=== PATIENT | male | born 1940 | race Caucasian/White ===

== ENCOUNTER 2017-08-04 16:06 | Inpatient (IN) | payer MEDICARE, OTHER ==
[~2017-08-04] VITALS: Ht 175.3 cm; Wt 121.6 kg
[2017-08-04] MEDS ORDERED: HEPARIN SO5000 UNIT2 SUBQ (16:23)
[2017-08-04] MEDS ORDERED: ACARBOSE50 MG ORAL (16:23)
[2017-08-04] MEDS ORDERED: ATORVASTATIN CA40 MG ORAL (16:23)
[2017-08-04] MEDS ORDERED: ASPIR 8181 MG ORAL (16:23)
[2017-08-04] MEDS ORDERED: LANTUS5 UNITS SUBQ (16:23)
[2017-08-04] MEDS ORDERED: MILK OF MA400 MG/51 ORAL (16:23)
[2017-08-04] MEDS ORDERED: ATENOLOL50 MG ORAL (16:23)
[2017-08-04] MEDS ORDERED: CYCLOBENZAPRINE10 MG ORAL (16:23)
[2017-08-04] MEDS ORDERED: SENOKOT8.6 MG PO (16:23)
[2017-08-04] MEDS ORDERED: GABAPENTIN400 MG ORAL (16:23)
[2017-08-04] MEDS ORDERED: JANUVIA25 MG ORAL (16:23)
[2017-08-04] MEDS ORDERED: MULTIVITAMINS1 EAC8 ORAL (16:23)
[2017-08-04] MEDS ORDERED: TAMSULOSIN HCL0.4 MG ORAL (16:23)
[2017-08-04] MEDS ORDERED: GLIMEPIRIDE4 MG ORAL (16:23)
[2017-08-04] MEDS ORDERED: TYLENOL650 MG/20. ORAL (16:23)
[2017-08-04] MEDS ORDERED: COLACE100 MG ORAL (16:23)
[2017-08-04] MEDS ORDERED: HUMALOG100 UNIT/4 SUBQ (16:23)
[2017-08-04] MEDS ORDERED: OXYCODONE-ACET1 EAC3 ORAL (16:23)
[2017-08-04] MEDS ORDERED: PROSCAR5 MG ORAL (16:23)
[2017-08-04] MEDS ORDERED: ZOFRAN4 M3 ORAL (16:23)
[2017-08-04] MEDS ORDERED: Cefepime HCl 1 GM in NS 55 ML IV SCH (16:45)
[2017-08-04 17:37] LABS: ANION GAP 12 mmol/L (5-15); BLOOD UREA NITROGEN 29 mg/dL (7-18); CALCIUM 9.6 MG/DL (8.5-10.1); CARBON DIOXIDE 28 MMOL/L (21-32); CHLORIDE 96 MMOL/L (98-107); CREATININE 1.4 MG/DL (0.55-1.30); SODIUM 136 MMOL/L (136-145)
[2017-08-04 17:42] LABS: BASOPHILS % (AUTO) 0.6 % (0.0-2.0); EOSINOPHILS % (AUTO) 0.7 % (0.0-3.0); HEMATOCRIT 43.1 % (42.0-52.0); HEMOGLOBIN 14.5 G/DL (14.2-18.0); LYMPHOCYTES % (AUTO) 11.5 % (20.0-45.0); MEAN CORPUSCULAR VOLUME 86 FL (80-99); MONOCYTES % (AUTO) 10.9 % (1.0-10.0); NEUTROPHILS % (AUTO) 76.4 % (45.0-75.0); PLATELET COUNT 221 K/UL (150-450); RED BLOOD COUNT 5.01 M/UL (4.70-6.10); RED CELL DISTRIBUTION WIDTH 14.3 % (11.6-14.8); WHITE BLOOD COUNT 8.1 K/UL (4.8-10.8)
[2017-08-04 17:42] LABS: APPEARANCE,URINE SLIGHTLY CLOUDY; BILIRUBIN, URINE 1+ (NEGATIVE); COLOR,URINE BROWN; GLUCOSE, URINE (UA) NEGATIVE (NEGATIVE); KETONES,URINE 2+ (NEGATIVE); LEUKOCYTE ESTERASE ,URINE 3+ (NEGATIVE); NITRITE,URINE NEGATIVE (NEGATIVE); PH,URINE 5 (4.5-8.0); PROTEIN,URINE 2+ (NEGATIVE); UROBILINOGEN,URINE 8 MG/DL (0.0-1.0)
[2017-08-04 17:52] LABS: ALANINE AMINOTRANSFERASE 50 U/L (12-78); ALBUMIN 3.5 G/DL (3.4-5.0); ALBUMIN/GLOBULIN RATIO 0.7 (1.0-2.7); ALKALINE PHOSPHATASE 107 U/L (46-116); ASPARTATE AMINO TRANSFERASE 35 U/L (15-37); BILIRUBIN,TOTAL 1.5 MG/DL (0.2-1.0); CKMB 1.5 NG/ML (0.0-3.6); CREATINE KINASE 35 U/L (26-308)
[2017-08-04 18:03] LABS: BILIRUBIN,DIRECT 0.7 MG/DL (0.0-0.3)
[2017-08-04 18:06] VITALS: BP 133/58
[2017-08-04] MEDS ORDERED: oxyCODONE HCL/Acetaminophen 5/325mg ORAL PRN (18:15)
[2017-08-04] MEDS ORDERED: Miralax 17gm pkt ORAL PRN (18:15)
[2017-08-04] MEDS ORDERED: Albuterol/Ipratropium 3ml neb HHN PRN (18:15)
[2017-08-04] MEDS ORDERED: Nitroglycerin Subl 0.4mg tab SL PRN (18:30)
[2017-08-04] MEDS: Tamsulosin 0.4mg cap ORAL SCH ×2 (21:00→23:20)
[2017-08-04] MEDS: Atorvastatin 80mg tab ORAL SCH ×2 (21:00→23:20)
--- NOTE | 2017-08-04 21:16 | History and Physical ---
History of Present Illness General Date patient seen: Aug 04, 2017 Time patient seen: 18:52 Reason for Hospitalization: persistent cough, nausea, poor appetite Present Illness HPI 77y/o male with pmh of HTN, CKD stage 3, DM2 (A1C 7.2) c/b neuropathy, GERD, L4- 5 spinal stenosis, BPH, osteoarthritis, depressionwho presents with persistent cough, nausea and poor PO intake. Pt states he has had poor PO intake for abt 2 months. States lately has not taken in much PO at all 2/2 nausea. Denies recent emesis. C/o persistent cough w/ minimal sputum for the past few weeks. Occ mild abd discomfort, but not currently. Denies f/c, d/c, chest pain, SOB, dysuria. Has chronic lower back pain which is stable. Has not been ambulating much at SNF. Notes ~30lb weight loss. In ED, pt had CT chest/abd/pelvis which showed distended gallbladder likely 2/2 cholelithiasis, small to moderate PE. Surgery consulted. Allergies: Coded Allergies: No Known Allergies (Unverified , 08/04/17) Medication History Scheduled Acarbose* (Precose*), 100 MG ORAL THREE TIMES A DAY, (Reported) Aspirin* (Aspir 81*), 81 MG ORAL DAILY, (Reported) Atenolol* (Tenormin*), 50 MG ORAL DAILY, (Reported) Atorvastatin Calcium* (Atorvastatin Calcium*), 80 MG ORAL BEDTIME, (Reported) Cyclobenzaprine Hcl* (Flexeril*), 10 MG ORAL THREE TIMES A DAY, (Reported) Docusate Sodium* (Colace*), 100 MG ORAL DAILY, (Reported) Finasteride* (Proscar*), 5 MG ORAL DAILY, (Reported) Gabapentin* (Gabapentin*), 400 MG ORAL THREE TIMES A DAY, (Reported) Glimepiride* (Glimepiride*), 4 MG ORAL BEFORE BREAKFAST, (Reported) Heparin Sod (Porcine) (Heparin Sodium*), 5,000 UNITS SUBQ EVERY 12 HOURS, ( Reported) Insulin Glargine (Lantus), 0 SUBQ BEDTIME, (Reported) Magnesium Hydroxide* (Milk Of Magnesia*), 30 ML ORAL DAILY, (Reported) Multivitamin With Minerals (Multivitamins With Minerals*), 1 TAB ORAL DAILY, ( Reported) Sitagliptin* (Januvia*), 100 MG ORAL DAILY, (Reported) Tamsulosin Hcl (Tamsulosin Hcl*), 0.4 MG ORAL BEDTIME, (Reported) Scheduled PRN Acetaminophen (Acetaminophen), 650 MG ORAL Q6H PRN for Prn Headache/Temp > 101, (Reported) Ondansetron* (Zofran*), 4 MG ORAL Q6H PRN for Nausea & Vomiting, (Reported) Oxycodone Hcl/Acetaminophen 5-325* (Oxycodone-Acetaminophen 5-325*), 1 TAB ORAL Q4H PRN for For Pain, (Reported) Miscellaneous Medications Insulin Lispro (Humalog), 0 SUBQ, (Reported) Sennosides (Senokot), 8.6 MG PO, (Reported) Patient History History Provided By: Patient, Medical Record, PMD Healthcare decision maker Resuscitation status Advanced Directive on File Past Medical/Surgical History Past Medical/Surgical History: (1) HTN (hypertension) (2) CKD (chronic kidney disease), stage III (3) BPH (benign prostatic hyperplasia) (4) Osteoarthritis (5) Depression (6) Lumbar spinal stenosis (7) GERD (gastroesophageal reflux disease) (8) Morbid obesity Social History Social History: (1) lives in [facility] Review of Systems Constitutional: Reports: malaise, weakness Eye: Reports: no symptoms ENT: Reports: no symptoms Respiratory: Reports: cough Cardiovascular: Reports: no symptoms Gastrointestinal: Reports: abdominal pain, nausea, vomiting Genitourinary: Reports: no symptoms Musculoskeletal: Reports: back pain Skin: Reports: no symptoms Psychiatric: Reports: no symptoms Neurological: Reports: no symptoms Endocrine: Reports: no symptoms Hematologic/Lymphatic: Reports: no symptoms Physical Exam Physical Exam Narrative General: alert, cooperative, no distress, appears stated age Head: normocephalic, without obvious abnormality, atraumatic Eyes: conjunctivae/corneas clear. PERRL, EOM's intact Throat: lips, mucosa, and tongue normal. MMM Neck: supple, symmetrical, trachea midline, and no JVD Lungs: clear to auscultation bilaterally Heart: regular rate and rhythm, S1, S2 normal, no murmur, click, rub or gallop Abdomen: soft, non-tender, non-distended, bowel sounds normal; Extremities: extremities normal, atraumatic, no cyanosis, +BLE edema Pulses: 2+ and symmetric Skin: skin color, texture, turgor normal; no rashes or lesions Neurologic: grossly normal, no focal deficits Last 24 Hour Vital Signs Date Time Temp Pulse Resp B/P (MAP) Pulse Ox O2 Delivery O2 Flow Rate FiO2 08/04/17 19:28 115/68 08/04/17 18:06 98.5 78 18 133/58 99 Room Air 98.5 08/04/17 15:59 98.0 78 20 144/67 94 Room Air 98.1 Laboratory Tests Test 08/04/17 17:10 08/04/17 17:25 White Blood Count 8.1 K/UL (4.8-10.8) Red Blood Count 5.01 M/UL (4.70-6.10) Hemoglobin 14.5 G/DL (14.2-18.0) Hematocrit 43.1 % (42.0-52.0) Mean Corpuscular Volume 86 FL (80-99) Mean Corpuscular Hemoglobin 29.0 PG (27.0-31.0) Mean Corpuscular Hemoglobin Concent 33.7 G/DL (32.0-36.0) Red Cell Distribution Width 14.3 % (11.6-14.8) Platelet Count 221 K/UL (150-450) Mean Platelet Volume 7.0 FL (6.5-10.1) Neutrophils (%) (Auto) 76.4 % (45.0-75.0) H Lymphocytes (%) (Auto) 11.5 % (20.0-45.0) L Monocytes (%) (Auto) 10.9 % (1.0-10.0) H Eosinophils (%) (Auto) 0.7 % (0.0-3.0) Basophils (%) (Auto) 0.6 % (0.0-2.0) Sodium Level 136 MMOL/L (136-145) Potassium Level 4.0 MMOL/L (3.5-5.1) Chloride Level 96 MMOL/L (98-107) L Carbon Dioxide Level 28 MMOL/L (21-32) Anion Gap 12 mmol/L (5-15) Blood Urea Nitrogen 29 mg/dL (7-18) H Creatinine 1.4 MG/DL (0.55-1.30) H Estimat Glomerular Filtration Rate mL/min (>60) Glucose Level 169 MG/DL (74-106) H Lactic Acid Level 1.40 mmol/L (0.66-2.22) Calcium Level 9.6 MG/DL (8.5-10.1) Total Bilirubin 1.5 MG/DL (0.2-1.0) H Direct Bilirubin 0.7 MG/DL (0.0-0.3) H Aspartate Amino Transf (AST/SGOT) 35 U/L (15-37) Alanine Aminotransferase (ALT/SGPT) 50 U/L (12-78) Alkaline Phosphatase 107 U/L (46-116) Total Creatine Kinase 35 U/L (26-308) Creatine Kinase MB 1.5 NG/ML (0.0-3.6) Creatine Kinase MB Relative Index 4.2 Troponin I 0.005 ng/mL (0.000-0.056) Total Protein 8.2 G/DL (6.4-8.2) Albumin 3.5 G/DL (3.4-5.0) Globulin 4.7 g/dL Albumin/Globulin Ratio 0.7 (1.0-2.7) L Urine Color Brown Urine Appearance Slightly cloudy Urine pH 5 (4.5-8.0) Urine Specific [place] 1.020 (1.005-1.035) Urine Protein 2+ (NEGATIVE) H Urine Glucose (UA) Negative (NEGATIVE) Urine Ketones 2+ (NEGATIVE) H Urine Occult Blood 4+ (NEGATIVE) H Urine Nitrite Negative (NEGATIVE) Urine Bilirubin 1+ (NEGATIVE) H Urine Ictotest Negative Urine Urobilinogen 8 MG/DL (0.0-1.0) H Urine Leukocyte Esterase 3+ (NEGATIVE) H Urine RBC 5-10 /HPF (0 - 0) H Urine WBC 10-15 /HPF (0 - 0) H Urine Squamous Epithelial Cells None /LPF (NONE/OCC) Urine Amorphous Sediment Few /LPF (NONE) H Urine Bacteria Many /HPF (NONE) H Microbiology Date/Time Source Procedure Growth Status 08/04/17 20:00 Nasal Nares Influenza Types A,B Antigen (ANN) - Final Complete Height (Feet): 5 Height (Inches): 9.00 Weight (Pounds): 160 Medications Current Medications Medications (Trade) Dose Ordered Sig/Faizan Route PRN Reason Start Time Stop Time Status Last Admin Dose Admin Acetaminophen (Tylenol) 650 mg Q4H PRN ORAL T>100.5 08/04/17 18:15 09/03/17 18:14 Albuterol/ Ipratropium (Albuterol/ Ipratropium) 3 ml Q4H PRN HHN Shortness of Breath 08/04/17 18:15 08/09/17 18:14 Aspirin (Ecotrin) 81 mg DAILY ORAL 08/05/17 09:00 09/04/17 08:59 Atenolol (Tenormin) 50 mg DAILY ORAL 08/05/17 09:00 09/04/17 08:59 Atorvastatin Calcium (Lipitor) 80 mg BEDTIME ORAL 08/04/17 21:00 09/03/17 20:59 Cefepime HCl 2 gm/ Sodium Chloride 110 ml @ 220 mls/hr Q24H IV 08/04/17 22:30 08/11/17 22:29 Dextrose (Dextrose 50%) STAT PRN IV Hypoglycemia 08/04/17 18:15 09/03/17 18:14 Gabapentin (Neurontin) 400 mg THREE TIMES A DAY ORAL 08/05/17 09:00 09/04/17 08:59 Heparin Sodium (Porcine) (Heparin 5000 units/ml) 5,000 units EVERY 12 HOURS SUBQ 08/04/17 21:00 09/03/17 20:59 Insulin Aspart (NovoLOG) BEFORE MEALS AND HS SUBQ 08/04/17 21:00 09/03/17 20:59 Metronidazole 100 ml @ 100 mls/hr Q6H IV 08/04/17 16:45 08/05/17 16:44 08/04/17 16:45 Morphine Sulfate (Morphine Sulfate) 2 mg Q4H PRN IVP Severe Pain (Pain Scale 7-10) 08/04/17 18:15 08/11/17 18:14 Nitroglycerin (Ntg) 0.4 mg Q5MIN X 3 DOSES PRN SL Prn Chest Pain 08/04/17 18:30 09/03/17 18:29 Ondansetron HCl (Zofran) 4 mg Q6H PRN IVP Nausea & Vomiting 08/04/17 18:15 09/03/17 18:14 Oxycodone/ Acetaminophen (Percocet 5-325) 1 tab Q4H PRN ORAL Moderate Pain (Pain Scale 4-6) 08/04/17 18:15 08/11/17 18:14 Polyethylene Glycol (Miralax) 17 gm DAILYPRN PRN ORAL Constipation 08/04/17 18:15 09/03/17 18:14 Tamsulosin HCl (Flomax) 0.4 mg BEDTIME ORAL 08/04/17 21:00 09/03/17 20:59 Temazepam (Restoril) 15 mg HSPRN PRN ORAL Insomnia 08/04/17 21:00 08/11/17 20:59 Vancomycin HCl 1 gm/Dextrose 275 ml @ 183.3 mls/ hr Q24H IV 08/05/17 00:30 08/10/17 00:29 UNV Assessment/Plan Problem List: (1) Acute deep vein thrombosis (DVT) of both lower extremities ICD Codes: I82.403 - Acute embolism and thrombosis of unspecified deep veins of lower extremity, bilateral SNOMED: 617422183428 (2) Pulmonary embolism ICD Codes: I26.99 - Other pulmonary embolism without acute cor pulmonale SNOMED: 75966009 (3) Cholelithiasis ICD Codes: K80.20 - Calculus of gallbladder without cholecystitis without obstruction SNOMED: 844573049 Qualifiers: (4) CKD (chronic kidney disease), stage III ICD Codes: N18.3 - Chronic kidney disease, stage 3 (moderate) SNOMED: 745559614 (5) Morbid obesity ICD Codes: E66.01 - Morbid (severe) obesity due to excess calories SNOMED: 641259023, 96907897864002 (6) HTN (hypertension) ICD Codes: I10 - Essential (primary) hypertension SNOMED: 60828266 (7) Lumbar spinal stenosis ICD Codes: M48.061 - Spinal stenosis, lumbar region without neurogenic claudication SNOMED: 12118625 (8) Osteoarthritis ICD Codes: M19.90 - Unspecified osteoarthritis, unspecified site SNOMED: 176128541 (9) GERD (gastroesophageal reflux disease) ICD Codes: K21.9 - Gastro-esophageal reflux disease without esophagitis SNOMED: 424256121 (10) BPH (benign prostatic hyperplasia) ICD Codes: N40.0 - Benign prostatic hyperplasia without lower urinary tract symptoms SNOMED: 775629966 (11) UTI (urinary tract infection) ICD Codes: N39.0 - Urinary tract infection, site not specified SNOMED: 09417207 (12) Failure to thrive SNOMED: 83945284 (13) Weight loss ICD Codes: R63.4 - Abnormal weight loss SNOMED: 83338536, 855776726 Status: stable Assessment/Plan Admit inpt Surgery consulted given CT a/p findings of distended gallbladder Pulm consulted Will d/w surgery and start heparin gtt Empiric abx: vanco, cefepime F/u cultures Trend CBC Trend BMP IVFs Nutrional eval Zofran PRN Pain control, bowel regimen Supportive care Cont SNF meds: ASA, atenolol, statin, flomax, finasteride BASSAM DVT Prophylaxis: HSQ Code Status: Full Hospital Classification Declaration: Based on this initial evaluation, and depending on the patient's clinical course, I anticipate that this patient will require hospitalization for 2-3 days for failure to thrive, cholelithiasis, acute DVT and PE, and close respiratory/hemodynamic monitoring. Disposition: Once the patient is stable to leave the hospital, I anticipate the patient will likely be discharged to the following environment: back to SNF I spent 71 minutes on this patient's case, and >50% was dedicated to counseling and/or care coordination. Discussed with patient/family, nursing staff, SW/CM, pulm, surgery regarding clinical status, treatment course, and disposition planning. Time of note may not reflect time of encounter. Darshana Bonilla M.D. Aug 04, 2017 21:16
[2017-08-04] MEDS ORDERED: Vancomycin 1.5 GM/D5W 250ML IVPB ONE (23:00)
[2017-08-04] MEDS: Cefepime HCl 2 GM in NS 110 ML IV SCH (23:21)
[2017-08-04] MEDS: Heparin 5000 units/ml inj SUBQ SCH (23:23)
[2017-08-04] MEDS: NovoLOG Insulin Flexpen SUBQ SCH (23:29)
[2017-08-05] MEDS ORDERED: Vancomycin 1 GM in D5W 275 ML IV SCH (00:30)
[2017-08-05] MEDS: Morphine Sulfate 2mg/ml Inj IVP PRN (01:48)
[2017-08-05 04:00] VITALS: BP 122/68
[2017-08-05] MEDS: NovoLOG Insulin Flexpen SUBQ SCH ×4 (05:51→20:34)
[2017-08-05 07:13] LABS: BASOPHILS % (AUTO) 0.8 % (0.0-2.0); EOSINOPHILS % (AUTO) 1.7 % (0.0-3.0); HEMATOCRIT 39.3 % (42.0-52.0); HEMOGLOBIN 13.2 G/DL (14.2-18.0); LYMPHOCYTES % (AUTO) 17.6 % (20.0-45.0); MEAN CORPUSCULAR VOLUME 86 FL (80-99); MONOCYTES % (AUTO) 11.9 % (1.0-10.0); PLATELET COUNT 203 K/UL (150-450); RED BLOOD COUNT 4.59 M/UL (4.70-6.10); RED CELL DISTRIBUTION WIDTH 14.1 % (11.6-14.8); WHITE BLOOD COUNT 7.2 K/UL (4.8-10.8)
[2017-08-05 07:48] LABS: PHOSPHORUS 3.3 MG/DL (2.5-4.9)
[2017-08-05 07:53] LABS: ALANINE AMINOTRANSFERASE 42 U/L (12-78); ALBUMIN/GLOBULIN RATIO 0.7 (1.0-2.7); ALKALINE PHOSPHATASE 90 U/L (46-116); ANION GAP 13 mmol/L (5-15); ASPARTATE AMINO TRANSFERASE 30 U/L (15-37); BILIRUBIN,TOTAL 1.1 MG/DL (0.2-1.0); BLOOD UREA NITROGEN 24 mg/dL (7-18); CALCIUM 9.3 MG/DL (8.5-10.1); CARBON DIOXIDE 24 MMOL/L (21-32); CHLORIDE 97 MMOL/L (98-107); CREATININE 1.3 MG/DL (0.55-1.30); POTASSIUM 3.3 MMOL/L (3.5-5.1); SODIUM 134 MMOL/L (136-145)
[2017-08-05 07:58] LABS: BILIRUBIN,DIRECT 0.4 MG/DL (0.0-0.3)
[2017-08-05 08:00] VITALS: BP 116/67
[2017-08-05] MEDS ORDERED: Aspirin EC 81mg tab ORAL SCH (09:00)
--- NOTE | 2017-08-05 09:11 | Diagnostic Imaging Report ---
Indication: Abdominal pain Technique: Continuous helical transaxial imaging of the chest, abdomen and pelvis was obtained from the lung bases to the pubic symphysis during intravenous contrast administration. Coronal 2-D reformats were also obtained. Study obtained in a Siemens sensation [address] Automatic Exposure Control was utilized. Total Dose length Product (DLP): [address] Dose Index Volume (CTDIvol): 0.15, 8.11, 48.67, 23.8, 26.79 mGy Comparison: None Findings: There is a filling defect in the left pulmonary artery extending into the left lower lobe branch and segmental branches most likely. Findings consistent with pulmonary embolus. Bovine arch noted. There is a small nodule at the right lung base measuring about 1 cm. The nodule is noncalcified and requires further evaluation. There is mild posterior basilar atelectasis. A hiatal hernia is present. There are innumerable stones within the gallbladder. Please correlate clinically for cholecystitis. The kidneys are atrophic. There are multiple hypodensities some too small to characterize adequately on this examination within the kidneys. There is a 4 cm cyst in the right kidney. Tiny left adrenal nodule demonstrated. The spleen and liver appear unremarkable. The pancreas is unremarkable. Aorta is moderately calcified. Normal appendix noted. No free air or free fluid identified. Urinary bladder is grossly unremarkable. Moderate degenerative changes of the lumbar spine demonstrated with hypertrophied facets, vertebral endplates and narrowed discs. IMPRESSION: Pulmonary embolus. Cholelithiasis. Please correlate clinically for cholecystitis. 1 cm right lung base nodule. Recommend [address] follow-up per Fleischner Society criteria. Small left adrenal nodule. Further evaluation with MR recommended. Right renal cyst Multiple hypodensities in both kidneys too small to characterize adequately. Normal appendix. Hiatal hernia Degenerative changes of the spine [facility] has communicated the preliminary results to the Emergency Department. Their findings are largely concordant with this report. Critical value communication. Findings were discussed via telephone with Dr. Don Kaye 08/04/17, 19:[address] scanner at [facility] is accredited by the [employer] and the scans are performed using dose optimization techniques as appropriate to a performed exam including Automatic Exposure control.
[2017-08-05] MEDS: Docusate 100mg cap ORAL SCH ×2 (09:35→16:49)
[2017-08-05] MEDS: Multivitamin w/Minerals tab ORAL SCH (09:35)
[2017-08-05] MEDS: Heparin 5000 units/ml inj SUBQ SCH (09:38)
--- NOTE | 2017-08-05 10:45 | Consultation ---
History of Present Illness General Date patient seen: Aug 04, 2017 Chief Complaint: General Complaint Referring physician: Dr. harrison Reason for Consultation: PE Present Illness HPI 77 year old male with hx of DM, chronic renal insufficiency, [facility] resident, SERJIO with CC of abdominal pain, nausea, dyspnea. He had a CT chest in ER showing Pulmonary embolism. P t looks chronically ill and c/o increasing weakness. Allergies: Coded Allergies: No Known Allergies (Unverified , 08/04/17) Medication History Scheduled Acarbose* (Precose*), 100 MG ORAL THREE TIMES A DAY, (Reported) Aspirin* (Aspir 81*), 81 MG ORAL DAILY, (Reported) Atenolol* (Tenormin*), 50 MG ORAL DAILY, (Reported) Atorvastatin Calcium* (Atorvastatin Calcium*), 80 MG ORAL BEDTIME, (Reported) Cyclobenzaprine Hcl* (Flexeril*), 10 MG ORAL THREE TIMES A DAY, (Reported) Docusate Sodium* (Colace*), 100 MG ORAL DAILY, (Reported) Finasteride* (Proscar*), 5 MG ORAL DAILY, (Reported) Gabapentin* (Gabapentin*), 400 MG ORAL THREE TIMES A DAY, (Reported) Glimepiride* (Glimepiride*), 4 MG ORAL BEFORE BREAKFAST, (Reported) Heparin Sod (Porcine) (Heparin Sodium*), 5,000 UNITS SUBQ EVERY 12 HOURS, ( Reported) Insulin Glargine (Lantus), 0 SUBQ BEDTIME, (Reported) Magnesium Hydroxide* (Milk Of Magnesia*), 30 ML ORAL DAILY, (Reported) Multivitamin With Minerals (Multivitamins With Minerals*), 1 TAB ORAL DAILY, ( Reported) Sitagliptin* (Januvia*), 100 MG ORAL DAILY, (Reported) Tamsulosin Hcl (Tamsulosin Hcl*), 0.4 MG ORAL BEDTIME, (Reported) Scheduled PRN Acetaminophen (Acetaminophen), 650 MG ORAL Q6H PRN for Prn Headache/Temp > 101, (Reported) Ondansetron* (Zofran*), 4 MG ORAL Q6H PRN for Nausea & Vomiting, (Reported) Oxycodone Hcl/Acetaminophen 5-325* (Oxycodone-Acetaminophen 5-325*), 1 TAB ORAL Q4H PRN for For Pain, (Reported) Miscellaneous Medications Insulin Lispro (Humalog), 0 SUBQ, (Reported) Sennosides (Senokot), 8.6 MG PO, (Reported) Patient History Healthcare decision maker Resuscitation status Full Code Advanced Directive on File Past Medical/Surgical History Past Medical/Surgical History: (1) Chronic renal insufficiency (2) Morbid obesity Review of Systems All Other Systems: negative except mentioned in HPI Physical Exam General Appearance: WD/WN Lines, tubes and drains: peripheral HEENT: normocephalic, atraumatic Neck: non-tender, normal alignment Respiratory/Chest: chest wall non-tender, normal breath sounds Breasts: no masses Cardiovascular/Chest: normal rate Abdomen: normal bowel sounds, hyperactive bowel sounds Extremities: normal range of motion Neurologic: green marketer II-XII grossly normal Last 24 Hour Vital Signs Date Time Temp Pulse Resp B/P (MAP) Pulse Ox O2 Delivery O2 Flow Rate FiO2 08/05/17 09:37 99 116/67 08/05/17 08:00 98 08/05/17 08:00 97.7 99 20 116/67 96 Room Air 08/05/17 04:00 100 08/05/17 04:00 96.6 98 20 122/68 98 08/05/17 00:00 104 08/04/17 19:28 115/68 08/04/17 18:06 98.5 78 18 133/58 99 Room Air 98.5 08/04/17 15:59 98.0 78 20 144/67 94 Room Air 98.1 Intake and Output 08/04/17 08/05/17 19:00 07:00 Intake Total 265 ml Output Total 660 ml Balance -395 ml Intake Oral 40 ml IV Total 225 ml Output Urine Total 660 ml Laboratory Tests Test 08/04/17 17:10 08/04/17 17:25 08/05/17 06:20 White Blood Count 8.1 K/UL (4.8-10.8) 7.2 K/UL (4.8-10.8) Red Blood Count 5.01 M/UL (4.70-6.10) 4.59 M/UL (4.70-6.10) L Hemoglobin 14.5 G/DL (14.2-18.0) 13.2 G/DL (14.2-18.0) L Hematocrit 43.1 % (42.0-52.0) 39.3 % (42.0-52.0) L Mean Corpuscular Volume 86 FL (80-99) 86 FL (80-99) Mean Corpuscular Hemoglobin 29.0 PG (27.0-31.0) 28.7 PG (27.0-31.0) Mean Corpuscular Hemoglobin Concent 33.7 G/DL (32.0-36.0) 33.5 G/DL (32.0-36.0) Red Cell Distribution Width 14.3 % (11.6-14.8) 14.1 % (11.6-14.8) Platelet Count 221 K/UL (150-450) 203 K/UL (150-450) Mean Platelet Volume 7.0 FL (6.5-10.1) 7.2 FL (6.5-10.1) Neutrophils (%) (Auto) 76.4 % (45.0-75.0) H 68.0 % (45.0-75.0) Lymphocytes (%) (Auto) 11.5 % (20.0-45.0) L 17.6 % (20.0-45.0) L Monocytes (%) (Auto) 10.9 % (1.0-10.0) H 11.9 % (1.0-10.0) H Eosinophils (%) (Auto) 0.7 % (0.0-3.0) 1.7 % (0.0-3.0) Basophils (%) (Auto) 0.6 % (0.0-2.0) 0.8 % (0.0-2.0) Sodium Level 136 MMOL/L (136-145) 134 MMOL/L (136-145) L Potassium Level 4.0 MMOL/L (3.5-5.1) 3.3 MMOL/L (3.5-5.1) L Chloride Level 96 MMOL/L (98-107) L 97 MMOL/L (98-107) L Carbon Dioxide Level 28 MMOL/L (21-32) 24 MMOL/L (21-32) Anion Gap 12 mmol/L (5-15) 13 mmol/L (5-15) Blood Urea Nitrogen 29 mg/dL (7-18) H 24 mg/dL (7-18) H Creatinine 1.4 MG/DL (0.55-1.30) H 1.3 MG/DL (0.55-1.30) Estimat Glomerular Filtration Rate mL/min (>60) mL/min (>60) Glucose Level 169 MG/DL (74-106) H 159 MG/DL (74-106) H Lactic Acid Level 1.40 mmol/L (0.66-2.22) Calcium Level 9.6 MG/DL (8.5-10.1) 9.3 MG/DL (8.5-10.1) Total Bilirubin 1.5 MG/DL (0.2-1.0) H 1.1 MG/DL (0.2-1.0) H Direct Bilirubin 0.7 MG/DL (0.0-0.3) H 0.4 MG/DL (0.0-0.3) H Aspartate Amino Transf (AST/SGOT) 35 U/L (15-37) 30 U/L (15-37) Alanine Aminotransferase (ALT/SGPT) 50 U/L (12-78) 42 U/L (12-78) Alkaline Phosphatase 107 U/L (46-116) 90 U/L (46-116) Total Creatine Kinase 35 U/L (26-308) Creatine Kinase MB 1.5 NG/ML (0.0-3.6) Creatine Kinase MB Relative Index 4.2 Troponin I 0.005 ng/mL (0.000-0.056) 0.033 ng/mL (0.000-0.056) Total Protein 8.2 G/DL (6.4-8.2) 7.3 G/DL (6.4-8.2) Albumin 3.5 G/DL (3.4-5.0) 3.0 G/DL (3.4-5.0) L Globulin 4.7 g/dL 4.3 g/dL Albumin/Globulin Ratio 0.7 (1.0-2.7) L 0.7 (1.0-2.7) L Urine Color Brown Urine Appearance Slightly cloudy Urine pH 5 (4.5-8.0) Urine Specific [place] 1.020 (1.005-1.035) Urine Protein 2+ (NEGATIVE) H Urine Glucose (UA) Negative (NEGATIVE) Urine Ketones 2+ (NEGATIVE) H Urine Occult Blood 4+ (NEGATIVE) H Urine Nitrite Negative (NEGATIVE) Urine Bilirubin 1+ (NEGATIVE) H Urine Ictotest Negative Urine Urobilinogen 8 MG/DL (0.0-1.0) H Urine Leukocyte Esterase 3+ (NEGATIVE) H Urine RBC 5-10 /HPF (0 - 0) H Urine WBC 10-15 /HPF (0 - 0) H Urine Squamous Epithelial Cells None /LPF (NONE/OCC) Urine Amorphous Sediment Few /LPF (NONE) H Urine Bacteria Many /HPF (NONE) H Erythrocyte Sedimentation Rate 28 MM/HR (0-20) H Hemoglobin A1c 7.2 % (4.3-6.0) H Phosphorus Level 3.3 MG/DL (2.5-4.9) Magnesium Level 1.4 MG/DL (1.8-2.4) L C-Reactive Protein, Quantitative 2.6 mg/dL (0.00-0.90) H Pro-B-Type Natriuretic Peptide 389 pg/mL (0-125) H Vitamin B12 Level 832 PG/ML (193-986) Vitamin D 25-Hydroxy Pending 25-Hydroxy Vitamin D2 Pending 25-Hydroxy Vitamin D3 Pending Folate 7.4 NG/ML (8.6-58.9) L Thyroid Stimulating Hormone (TSH) 1.350 uiU/mL (0.358-3.740) Microbiology Date/Time Source Procedure Growth Status 08/04/17 20:00 Nasal Nares Influenza Types A,B Antigen (ANN) - Final Complete 08/04/17 17:25 Urine,Clean Catch Urine Culture - Preliminary Gram Negative Bacillus 1 Resulted Height (Feet): 5 Height (Inches): 9.00 Weight (Pounds): 258 Medications Current Medications Medications (Trade) Dose Ordered Sig/Faizan Route PRN Reason Start Time Stop Time Status Last Admin Dose Admin Acetaminophen (Tylenol) 650 mg Q4H PRN ORAL T>100.5 08/04/17 18:15 09/03/17 18:14 Albuterol/ Ipratropium (Albuterol/ Ipratropium) 3 ml Q4H PRN HHN Shortness of Breath 08/04/17 18:15 18 18:14 Aspirin (Ecotrin) 81 mg DAILY ORAL 08/05/17 09:00 09/04/17 08:59 08/05/17 09:36 Atenolol (Tenormin) 50 mg DAILY ORAL 08/05/17 09:00 09/04/17 08:59 08/05/17 09:37 Atorvastatin Calcium (Lipitor) 80 mg BEDTIME ORAL 08/04/17 21:00 09/03/17 20:59 Cefepime HCl 2 gm/ Sodium Chloride 110 ml @ 220 mls/hr Q24H IV 08/04/17 22:30 08/11/17 22:29 08/04/17 23:21 Dextrose (Dextrose 50%) STAT PRN IV Hypoglycemia 08/04/17 18:15 09/03/17 18:14 Docusate Sodium (Colace) 100 mg TWICE A DAY ORAL 08/05/17 09:00 09/04/17 08:59 08/05/17 09:35 Finasteride (Proscar) 5 mg DAILY ORAL 08/05/17 09:00 09/04/17 08:59 08/05/17 09:35 Folic Acid (Folate) 1 mg DAILY ORAL 08/05/17 09:00 09/04/17 08:59 08/05/17 09:40 Gabapentin (Neurontin) 400 mg THREE TIMES A DAY ORAL 08/05/17 09:00 09/04/17 08:59 08/05/17 09:35 Heparin Sodium (Porcine) (Heparin 5000 units/ml) 5,000 units EVERY 12 HOURS SUBQ 08/04/17 21:00 09/03/17 20:59 08/05/17 09:38 Insulin Aspart (NovoLOG) BEFORE MEALS AND HS SUBQ 08/04/17 21:00 09/03/17 20:59 08/05/17 05:51 Magnesium Sulfate 100 ml @ 100 mls/hr Q1H IVPB 08/05/17 09:00 08/05/17 10:59 08/05/17 10:30 Morphine Sulfate (Morphine Sulfate) 2 mg Q4H PRN IVP Severe Pain (Pain Scale 7-10) 08/04/17 18:15 08/11/17 18:14 08/05/17 01:48 Multivitamins Therapeutic (Therapeutic Multivitamin) 1 ea DAILY ORAL 08/05/17 09:00 09/04/17 08:59 08/05/17 09:35 Nitroglycerin (Ntg) 0.4 mg Q5MIN X 3 DOSES PRN SL Prn Chest Pain 08/04/17 18:30 09/03/17 18:29 Ondansetron HCl (Zofran) 4 mg Q6H PRN IVP Nausea & Vomiting 08/04/17 18:15 09/03/17 18:14 08/05/17 09:35 Oxycodone/ Acetaminophen (Percocet 5-325) 1 tab Q4H PRN ORAL Moderate Pain (Pain Scale 4-6) 08/04/17 18:15 08/11/17 18:14 Polyethylene Glycol (Miralax) 17 gm DAILYPRN PRN ORAL Constipation 08/04/17 18:15 09/03/17 18:14 Sennosides (Senokot) 2 tab QHS ORAL 08/05/17 21:00 09/04/17 20:59 Sodium Chloride 1,000 ml @ 75 mls/hr [id number] IV 08/04/17 23:30 09/03/17 23:29 08/05/17 00:01 Tamsulosin HCl (Flomax) 0.4 mg BEDTIME ORAL 08/04/17 21:00 09/03/17 20:59 Temazepam (Restoril) 15 mg HSPRN PRN ORAL Insomnia 08/04/17 21:00 08/11/17 20:59 Vancomycin HCl (Vanco rx to dose) 1 ea DAILY PRN MISC . 08/04/17 21:15 09/03/17 21:14 Vancomycin HCl/ Dextrose 250 ml @ 166.667 mls/hr Q24H IVPB 08/05/17 23:00 08/10/17 22:59 Assessment/Plan Problem List: (1) Pulmonary embolism ICD Codes: I26.99 - Other pulmonary embolism without acute cor pulmonale SNOMED: 13753982 (2) Chronic renal insufficiency ICD Codes: N18.9 - Chronic kidney disease, unspecified SNOMED: 407642534 (3) Morbid obesity ICD Codes: E66.01 - Morbid (severe) obesity due to excess calories SNOMED: 184183966, 38315139989034 (4) Encounter for generalized patient complaints ICD Codes: Z00.8 - Encounter for other general examination SNOMED: 560483789 Assessment/Plan IV heparin venous doppler of legs avoid oral agents until cleared from surgery ( he has large galls tones() symptomatic treatment titrate fio2 to sat of 92% surgical evaluation. YASMIN MERCADO Aug 05, 2017 10:45
[2017-08-05] MEDS ORDERED: Tubing IV Secondary IV ONE (10:58)
--- NOTE | 2017-08-05 10:58 | Diagnostic Imaging Report ---
Indication: Dyspnea Comparison: None A single view chest radiograph was obtained. Findings: The lungs are clear. Myocardium is present. The aorta is mildly ectatic. Bones are osteopenic. IMPRESSION: No acute disease identified on the current chest x-ray. Please refer to the CT chest report
--- NOTE | 2017-08-05 11:14 | Pulmonology Progress Note ---
Assessment/Plan Problems: (1) Pulmonary embolism (2) DVT (deep venous thrombosis) (3) Sepsis (4) Morbid obesity (5) Chronic renal insufficiency Assessment/Plan on heparin drip HIDA scan f/u urine culture results continue cefepime pt/ot Subjective ROS Limited/Unobtainable: No Constitutional: Reports: no symptoms Respiratory: Reports: no symptoms Allergies: Coded Allergies: No Known Allergies (Unverified , 08/04/17) Objective Last 24 Hour Vital Signs Date Time Temp Pulse Resp B/P (MAP) Pulse Ox O2 Delivery O2 Flow Rate FiO2 08/05/17 09:37 99 116/67 08/05/17 08:00 98 08/05/17 08:00 97.7 99 20 116/67 96 Room Air 08/05/17 04:00 100 08/05/17 04:00 96.6 98 20 122/68 98 08/05/17 00:00 104 08/04/17 19:28 115/68 08/04/17 18:06 98.5 78 18 133/58 99 Room Air 98.5 08/04/17 15:59 98.0 78 20 144/67 94 Room Air 98.1 Intake and Output 08/04/17 08/05/17 19:00 07:00 Intake Total 265 ml Output Total 660 ml Balance -395 ml Intake Oral 40 ml IV Total 225 ml Output Urine Total 660 ml General Appearance: WD/WN HEENT: normocephalic, atraumatic Respiratory/Chest: chest wall non-tender, lungs clear Cardiovascular: normal peripheral pulses, normal rate Abdomen: normal bowel sounds, soft, non tender Genitourinary: normal external genitalia Extremities: no clubbing Skin: no lesions Neurologic/Psychiatric: seam taper 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 II-XII grossly normal Lymphatic: no neck adenopathy Microbiology Date/Time Source Procedure Growth Status 08/04/17 20:00 Nasal Nares Influenza Types A,B Antigen (ANN) - Final Complete 08/04/17 17:25 Urine,Clean Catch Urine Culture - Preliminary Gram Negative Bacillus 1 Resulted Laboratory Tests 08/04/17 17:10: White Blood Count 8.1, Red Blood Count 5.01, Hemoglobin 14.5, Hematocrit 43.1, Mean Corpuscular Volume 86, Mean Corpuscular Hemoglobin 29.0, Mean Corpuscular Hemoglobin Concent 33.7, Red Cell Distribution Width 14.3, Platelet Count 221, Mean Platelet Volume 7.0, Neutrophils (%) (Auto) 76.4H, Lymphocytes (%) (Auto) 11.5L, Monocytes (%) (Auto) 10.9H, Eosinophils (%) (Auto) 0.7, Basophils (%) ( Auto) 0.6, Sodium Level 136, Potassium Level 4.0, Chloride Level 96L, Carbon Dioxide Level 28, Anion Gap 12, Blood Urea Nitrogen 29H, Creatinine 1.4H, Estimat Glomerular Filtration Rate , Glucose Level 169H, Lactic Acid Level 1.40 , Calcium Level 9.6, Total Bilirubin 1.5H, Direct Bilirubin 0.7H, Aspartate Amino Transf (AST/SGOT) 35, Alanine Aminotransferase (ALT/SGPT) 50, Alkaline Phosphatase 107, Total Creatine Kinase 35, Creatine Kinase MB 1.5, Creatine Kinase MB Relative Index 4.2, Troponin I 0.005, Total Protein 8.2, Albumin 3.5, Globulin 4.7, Albumin/Globulin Ratio 0.7L 08/04/17 17:25: Urine Color Brown, Urine Appearance Slightly cloudy, Urine pH 5, Urine Specific [place] 1.020, Urine Protein 2+H, Urine Glucose (UA) Negative, Urine Ketones 2+H , Urine Occult Blood 4+H, Urine Nitrite Negative, Urine Bilirubin 1+H, Urine Ictotest Negative, Urine Urobilinogen 8H, Urine Leukocyte Esterase 3+H, Urine RBC 5-10H, Urine WBC 10-15H, Urine Squamous Epithelial Cells None, Urine Amorphous Sediment FewH, Urine Bacteria ManyH 08/05/17 06:20: White Blood Count 7.2, Red Blood Count 4.59L, Hemoglobin 13.2L, Hematocrit 39.3L , Mean Corpuscular Volume 86, Mean Corpuscular Hemoglobin 28.7, Mean Corpuscular Hemoglobin Concent 33.5, Red Cell Distribution Width 14.1, Platelet Count 203, Mean Platelet Volume 7.2, Neutrophils (%) (Auto) 68.0, Lymphocytes (% ) (Auto) 17.6L, Monocytes (%) (Auto) 11.9H, Eosinophils (%) (Auto) 1.7, Basophils (%) (Auto) 0.8, Sodium Level 134L, Potassium Level 3.3L, Chloride Level 97L, Carbon Dioxide Level 24, Anion Gap 13, Blood Urea Nitrogen 24H, Creatinine 1.3, Estimat Glomerular Filtration Rate , Glucose Level 159H, Calcium Level 9.3, Total Bilirubin 1.1H, Direct Bilirubin 0.4H, Aspartate Amino Transf (AST/SGOT) 30, Alanine Aminotransferase (ALT/SGPT) 42, Alkaline Phosphatase 90, Troponin I 0.033, Total Protein 7.3, Albumin 3.0L, Globulin 4.3 , Albumin/Globulin Ratio 0.7L, Erythrocyte Sedimentation Rate 28H, Hemoglobin A1c 7.2H, Phosphorus Level 3.3, Magnesium Level 1.4L, C-Reactive Protein, Quantitative 2.6H, Pro-B-Type Natriuretic Peptide 389H, Vitamin B12 Level 832, Vitamin D 25-Hydroxy [Pending], 25-Hydroxy Vitamin D2 [Pending], 25-Hydroxy Vitamin D3 [Pending], Folate 7.4L, Thyroid Stimulating Hormone (TSH) 1.350 Current Medications Medications (Trade) Dose Ordered Sig/Faizan Route PRN Reason Start Time Stop Time Status Last Admin Dose Admin Acetaminophen (Tylenol) 650 mg Q4H PRN ORAL T>100.5 08/04/17 18:15 09/03/17 18:14 Albuterol/ Ipratropium (Albuterol/ Ipratropium) 3 ml Q4H PRN HHN Shortness of Breath 08/04/17 18:15 08/09/17 18:14 Aspirin (Ecotrin) 81 mg DAILY ORAL 08/05/17 09:00 09/04/17 08:59 08/05/17 09:36 Atenolol (Tenormin) 50 mg DAILY ORAL 08/05/17 09:00 09/04/17 08:59 08/05/17 09:37 Atorvastatin Calcium (Lipitor) 80 mg BEDTIME ORAL 08/04/17 21:00 09/03/17 20:59 Cefepime HCl 2 gm/ Sodium Chloride 110 ml @ 220 mls/hr Q24H IV 08/04/17 22:30 08/11/17 22:29 08/04/17 23:21 Dextrose (Dextrose 50%) STAT PRN IV Hypoglycemia 08/04/17 18:15 09/03/17 18:14 Docusate Sodium (Colace) 100 mg TWICE A DAY ORAL 08/05/17 09:00 09/04/17 08:59 08/05/17 09:35 Finasteride (Proscar) 5 mg DAILY ORAL 08/05/17 09:00 09/04/17 08:59 08/05/17 09:35 Folic Acid (Folate) 1 mg DAILY ORAL 08/05/17 09:00 09/04/17 08:59 08/05/17 09:40 Gabapentin (Neurontin) 400 mg THREE TIMES A DAY ORAL 08/05/17 09:00 09/04/17 08:59 08/05/17 09:35 Heparin Sodium (Porcine) (Heparin 5000 units/ml) 5,000 units EVERY 12 HOURS SUBQ 08/04/17 21:00 09/03/17 20:59 08/05/17 09:38 Heparin Sodium (Porcine) (Heparin 5000 units/ml) 5,000 units ONCE ONCE IV 08/05/17 11:15 08/05/17 11:16 UNV Heparin Sodium/ Dextrose 500 ml @ 42.13 mls/ hr adjust per protocol IV 08/05/17 11:15 09/04/17 11:14 UNV Insulin Aspart (NovoLOG) BEFORE MEALS AND HS SUBQ 08/04/17 21:00 09/03/17 20:59 08/05/17 05:51 Morphine Sulfate (Morphine Sulfate) 2 mg Q4H PRN IVP Severe Pain (Pain Scale 7-10) 08/04/17 18:15 08/11/17 18:14 08/05/17 01:48 Multivitamins Therapeutic (Therapeutic Multivitamin) 1 ea DAILY ORAL 08/05/17 09:00 09/04/17 08:59 08/05/17 09:35 Nitroglycerin (Ntg) 0.4 mg Q5MIN X 3 DOSES PRN SL Prn Chest Pain 08/04/17 18:30 09/03/17 18:29 Ondansetron HCl (Zofran) 4 mg Q6H PRN IVP Nausea & Vomiting 08/04/17 18:15 09/03/17 18:14 08/05/17 09:35 Oxycodone/ Acetaminophen (Percocet 5-325) 1 tab Q4H PRN ORAL Moderate Pain (Pain Scale 4-6) 08/04/17 18:15 08/11/17 18:14 Polyethylene Glycol (Miralax) 17 gm DAILYPRN PRN ORAL Constipation 08/04/17 18:15 09/03/17 18:14 Sennosides (Senokot) 2 tab QHS ORAL 08/05/17 21:00 09/04/17 20:59 Sodium Chloride 1,000 ml @ 75 mls/hr [id number] IV 08/04/17 23:30 09/03/17 23:29 08/05/17 00:01 Tamsulosin HCl (Flomax) 0.4 mg BEDTIME ORAL 08/04/17 21:00 09/03/17 20:59 Temazepam (Restoril) 15 mg HSPRN PRN ORAL Insomnia 08/04/17 21:00 08/11/17 20:59 Vancomycin HCl (Vanco rx to dose) 1 ea DAILY PRN MISC . 08/04/17 21:15 09/03/17 21:14 Vancomycin HCl/ Dextrose 250 ml @ 166.667 mls/hr Q24H IVPB 08/05/17 23:00 08/10/17 22:59 YASMIN MERCADO Aug 05, 2017 11:14
[2017-08-05] MEDS ORDERED: Heparin 5000 units/ml inj IV ONE (11:30)
[2017-08-05 12:00] VITALS: BP 108/53
[2017-08-05] MEDS: Heparin 25,000u/D5W 500ml 500 ML IV SCH ×2 (12:02→21:19)
[2017-08-05 12:17] LABS: BASOPHILS % (AUTO) 0.7 % (0.0-2.0); EOSINOPHILS % (AUTO) 1.8 % (0.0-3.0); HEMATOCRIT 39.6 % (42.0-52.0); HEMOGLOBIN 12.9 G/DL (14.2-18.0); LYMPHOCYTES % (AUTO) 11.3 % (20.0-45.0); MEAN CORPUSCULAR VOLUME 85 FL (80-99); MONOCYTES % (AUTO) 12.5 % (1.0-10.0); NEUTROPHILS % (AUTO) 73.7 % (45.0-75.0); PLATELET COUNT 196 K/UL (150-450); RED BLOOD COUNT 4.64 M/UL (4.70-6.10); RED CELL DISTRIBUTION WIDTH 14.5 % (11.6-14.8); WHITE BLOOD COUNT 7.3 K/UL (4.8-10.8)
[2017-08-05 15:55] LABS: APPEARANCE,URINE SLIGHTLY CLOUDY; BILIRUBIN, URINE NEGATIVE (NEGATIVE); GLUCOSE, URINE (UA) NEGATIVE (NEGATIVE); KETONES,URINE 2+ (NEGATIVE); LEUKOCYTE ESTERASE ,URINE 3+ (NEGATIVE); NITRITE,URINE POSITIVE (NEGATIVE); PH,URINE 5 (4.5-8.0); PROTEIN,URINE 2+ (NEGATIVE); UROBILINOGEN,URINE NORMAL MG/DL (0.0-1.0)
[2017-08-05 16:00] VITALS: BP 112/70
[2017-08-05 16:10] LABS: COLOR,URINE YELLOW
--- NOTE | 2017-08-05 16:12 | Consultation ---
History of Present Illness General Date patient seen: Aug 05, 2017 Chief Complaint: General Complaint Referring physician: Dr. harrison Reason for Consultation: cholelithiasis Present Illness HPI 77M with multiple medical comorbidities who is a prison resident presented with abdominal pain, persistent nausea, and emesis. On admission had CT noted to have PE and very significant cholelithiasis. Has been complaining of nausea or over 2 months and has had loss of appetite since. Does not recall significant abdominal discomfort during this time and does not note relation to food but does state that it has been two months so he cannot recall fully. surgery called to evaluate cholelithiasis. Allergies: Coded Allergies: No Known Allergies (Unverified , 08/04/17) Medication History Scheduled Acarbose* (Precose*), 100 MG ORAL THREE TIMES A DAY, (Reported) Aspirin* (Aspir 81*), 81 MG ORAL DAILY, (Reported) Atenolol* (Tenormin*), 50 MG ORAL DAILY, (Reported) Atorvastatin Calcium* (Atorvastatin Calcium*), 80 MG ORAL BEDTIME, (Reported) Cyclobenzaprine Hcl* (Flexeril*), 10 MG ORAL THREE TIMES A DAY, (Reported) Docusate Sodium* (Colace*), 100 MG ORAL DAILY, (Reported) Finasteride* (Proscar*), 5 MG ORAL DAILY, (Reported) Gabapentin* (Gabapentin*), 400 MG ORAL THREE TIMES A DAY, (Reported) Glimepiride* (Glimepiride*), 4 MG ORAL BEFORE BREAKFAST, (Reported) Heparin Sod (Porcine) (Heparin Sodium*), 5,000 UNITS SUBQ EVERY 12 HOURS, ( Reported) Insulin Glargine (Lantus), 0 SUBQ BEDTIME, (Reported) Magnesium Hydroxide* (Milk Of Magnesia*), 30 ML ORAL DAILY, (Reported) Multivitamin With Minerals (Multivitamins With Minerals*), 1 TAB ORAL DAILY, ( Reported) Sitagliptin* (Januvia*), 100 MG ORAL DAILY, (Reported) Tamsulosin Hcl (Tamsulosin Hcl*), 0.4 MG ORAL BEDTIME, (Reported) Scheduled PRN Acetaminophen (Acetaminophen), 650 MG ORAL Q6H PRN for Prn Headache/Temp > 101, (Reported) Ondansetron* (Zofran*), 4 MG ORAL Q6H PRN for Nausea & Vomiting, (Reported) Oxycodone Hcl/Acetaminophen 5-325* (Oxycodone-Acetaminophen 5-325*), 1 TAB ORAL Q4H PRN for For Pain, (Reported) Miscellaneous Medications Insulin Lispro (Humalog), 0 SUBQ, (Reported) Sennosides (Senokot), 8.6 MG PO, (Reported) Patient History History Provided By: Patient, Medical Record Healthcare decision maker Resuscitation status Full Code Advanced Directive on File Past Medical/Surgical History Past Medical/Surgical History: (1) Cholelithiasis (2) Nausea (3) Encounter for generalized patient complaints (4) Morbid obesity (5) Chronic renal insufficiency (6) Pulmonary embolism (7) DVT (deep venous thrombosis) (8) Sepsis Review of Systems Constitutional: Denies: no symptoms, see HPI, chills, sweats, fever, malaise, weakness, other Eye: Denies: no symptoms, see HPI, eye pain, blurred vision, tearing, double vision, nose pain, nose congestion, acuity changes, discharge, other ENT: Denies: no symptoms, see HPI, ear pain, ear discharge, nose pain, nose congestion, throat pain, throat swelling, mouth pain, hearing loss, nasal discharge, other Respiratory: Denies: no symptoms, see HPI, cough, orthopnea, shortness of breath, stridor, wheezing, HYDE, sputum, other Cardiovascular: Denies: no symptoms, see HPI, chest pain, edema, palpitations, syncope, PND, other Gastrointestinal: Reports: nausea, Denies: no symptoms, see HPI, abdominal pain , constipation, diarrhea, vomiting, melena, hematemesis, other Genitourinary: Denies: no symptoms, see HPI, discharge, dysuria, frequency, hematuria, pain, retention, incontinence, urgency, vag bleed/dc, other Musculoskeletal: Denies: no symptoms, see HPI, back pain, gout, joint pain, joint swelling, muscle pain, muscle stiffness, other Skin: Denies: no symptoms, see HPI, rash, change in color, change in hair/nails , dryness, lesions, other Psychiatric: Denies: no symptoms, see HPI, prior hx, anxiety, depressed feelings, emotional problems, SI, HI, hallucinations, other Neurological: Denies: no symptoms, see HPI, headache, numbness, paresthesia, seizure, tingling, tremors, focal weakness, syncope, dizziness, other Endocrine: Denies: no symptoms, see HPI, excessive sweating, flushing, intolerance to temperature, increased thirst, increased urine, unexplained weight loss, other Hematologic/Lymphatic: Denies: no symptoms, see HPI, anemia, blood clots, easy bleeding, easy bruising, swollen glands, diathesis, other Physical Exam General Appearance: no apparent distress, alert Lines, tubes and drains: peripheral HEENT: normocephalic, mucous membranes moist Neck: supple Respiratory/Chest: lungs clear, normal breath sounds, no respiratory distress, no accessory muscle use Cardiovascular/Chest: normal peripheral pulses, normal rate, regular rhythm Abdomen: normal bowel sounds, non tender, soft, no organomegaly, no mass Extremities: normal inspection Skin Exam: normal pigmentation Neurologic: alert, oriented x 3, responsive Last 24 Hour Vital Signs Date Time Temp Pulse Resp B/P (MAP) Pulse Ox O2 Delivery O2 Flow Rate FiO2 08/05/17 16:00 97.3 85 20 112/70 99 Room Air 08/05/17 12:00 86 08/05/17 12:00 97.0 90 20 108/53 95 Room Air 08/05/17 09:37 99 116/67 08/05/17 08:00 98 08/05/17 08:00 97.7 99 20 116/67 96 Room Air 08/05/17 04:00 100 08/05/17 04:00 96.6 98 20 122/68 98 08/05/17 00:00 104 08/04/17 19:28 115/68 08/04/17 18:06 98.5 78 18 133/58 99 Room Air 98.5 Intake and Output 08/04/17 08/05/17 19:00 07:00 Intake Total 265 ml Output Total 660 ml Balance -395 ml Intake Oral 40 ml IV Total 225 ml Output Urine Total 660 ml Laboratory Tests Test 08/04/17 17:10 08/04/17 17:25 08/05/17 06:20 08/05/17 11:40 White Blood Count 8.1 K/UL (4.8-10.8) 7.2 K/UL (4.8-10.8) 7.3 K/UL (4.8-10.8) Red Blood Count 5.01 M/UL (4.70-6.10) 4.59 M/UL (4.70-6.10) L 4.64 M/UL (4.70-6.10) L Hemoglobin 14.5 G/DL (14.2-18.0) 13.2 G/DL (14.2-18.0) L 12.9 G/DL (14.2-18.0) L Hematocrit 43.1 % (42.0-52.0) 39.3 % (42.0-52.0) L 39.6 % (42.0-52.0) L Mean Corpuscular Volume 86 FL (80-99) 86 FL (80-99) 85 FL (80-99) Mean Corpuscular Hemoglobin 29.0 PG (27.0-31.0) 28.7 PG (27.0-31.0) 27.8 PG (27.0-31.0) Mean Corpuscular Hemoglobin Concent 33.7 G/DL (32.0-36.0) 33.5 G/DL (32.0-36.0) 32.6 G/DL (32.0-36.0) Red Cell Distribution Width 14.3 % (11.6-14.8) 14.1 % (11.6-14.8) 14.5 % (11.6-14.8) Platelet Count 221 K/UL (150-450) 203 K/UL (150-450) 196 K/UL (150-450) Mean Platelet Volume 7.0 FL (6.5-10.1) 7.2 FL (6.5-10.1) 7.9 FL (6.5-10.1) Neutrophils (%) (Auto) 76.4 % (45.0-75.0) H 68.0 % (45.0-75.0) 73.7 % (45.0-75.0) Lymphocytes (%) (Auto) 11.5 % (20.0-45.0) L 17.6 % (20.0-45.0) L 11.3 % (20.0-45.0) L Monocytes (%) (Auto) 10.9 % (1.0-10.0) H 11.9 % (1.0-10.0) H 12.5 % (1.0-10.0) H Eosinophils (%) (Auto) 0.7 % (0.0-3.0) 1.7 % (0.0-3.0) 1.8 % (0.0-3.0) Basophils (%) (Auto) 0.6 % (0.0-2.0) 0.8 % (0.0-2.0) 0.7 % (0.0-2.0) Sodium Level 136 MMOL/L (136-145) 134 MMOL/L (136-145) L Potassium Level 4.0 MMOL/L (3.5-5.1) 3.3 MMOL/L (3.5-5.1) L Chloride Level 96 MMOL/L (98-107) L 97 MMOL/L (98-107) L Carbon Dioxide Level 28 MMOL/L (21-32) 24 MMOL/L (21-32) Anion Gap 12 mmol/L (5-15) 13 mmol/L (5-15) Blood Urea Nitrogen 29 mg/dL (7-18) H 24 mg/dL (7-18) H Creatinine 1.4 MG/DL (0.55-1.30) H 1.3 MG/DL (0.55-1.30) Estimat Glomerular Filtration Rate mL/min (>60) mL/min (>60) Glucose Level 169 MG/DL (74-106) H 159 MG/DL (74-106) H Lactic Acid Level 1.40 mmol/L (0.66-2.22) Calcium Level 9.6 MG/DL (8.5-10.1) 9.3 MG/DL (8.5-10.1) Total Bilirubin 1.5 MG/DL (0.2-1.0) H 1.1 MG/DL (0.2-1.0) H Direct Bilirubin 0.7 MG/DL (0.0-0.3) H 0.4 MG/DL (0.0-0.3) H Aspartate Amino Transf (AST/SGOT) 35 U/L (15-37) 30 U/L (15-37) Alanine Aminotransferase (ALT/SGPT) 50 U/L (12-78) 42 U/L (12-78) Alkaline Phosphatase 107 U/L (46-116) 90 U/L (46-116) Total Creatine Kinase 35 U/L (26-308) Creatine Kinase MB 1.5 NG/ML (0.0-3.6) Creatine Kinase MB Relative Index 4.2 Troponin I 0.005 ng/mL (0.000-0.056) 0.033 ng/mL (0.000-0.056) Total Protein 8.2 G/DL (6.4-8.2) 7.3 G/DL (6.4-8.2) Albumin 3.5 G/DL (3.4-5.0) 3.0 G/DL (3.4-5.0) L Globulin 4.7 g/dL 4.3 g/dL Albumin/Globulin Ratio 0.7 (1.0-2.7) L 0.7 (1.0-2.7) L Urine Color Brown Urine Appearance Slightly cloudy Urine pH 5 (4.5-8.0) Urine Specific [place] 1.020 (1.005-1.035) Urine Protein 2+ (NEGATIVE) H Urine Glucose (UA) Negative (NEGATIVE) Urine Ketones 2+ (NEGATIVE) H Urine Occult Blood 4+ (NEGATIVE) H Urine Nitrite Negative (NEGATIVE) Urine Bilirubin 1+ (NEGATIVE) H Urine Ictotest Negative Urine Urobilinogen 8 MG/DL (0.0-1.0) H Urine Leukocyte Esterase 3+ (NEGATIVE) H Urine RBC 5-10 /HPF (0 - 0) H Urine WBC 10-15 /HPF (0 - 0) H Urine Squamous Epithelial Cells None /LPF (NONE/OCC) Urine Amorphous Sediment Few /LPF (NONE) H Urine Bacteria Many /HPF (NONE) H Erythrocyte Sedimentation Rate 28 MM/HR (0-20) H Hemoglobin A1c 7.2 % (4.3-6.0) H Phosphorus Level 3.3 MG/DL (2.5-4.9) Magnesium Level 1.4 MG/DL (1.8-2.4) L C-Reactive Protein, Quantitative 2.6 mg/dL (0.00-0.90) H Pro-B-Type Natriuretic Peptide 389 pg/mL (0-125) H Vitamin B12 Level 832 PG/ML (193-986) Vitamin D 25-Hydroxy Pending 25-Hydroxy Vitamin D2 Pending 25-Hydroxy Vitamin D3 Pending Folate 7.4 NG/ML (8.6-58.9) L Thyroid Stimulating Hormone (TSH) 1.350 uiU/mL (0.358-3.740) Activated Partial Thromboplast Time 28 SEC (23-33) Test 08/05/17 15:35 Urine Color Pending Urine Appearance Pending Urine pH Pending Urine Specific [place] Pending Urine Protein Pending Urine Glucose (UA) Pending Urine Ketones Pending Urine Occult Blood Pending Urine Nitrite Pending Urine Bilirubin Pending Urine Urobilinogen Pending Urine Leukocyte Esterase Pending Urine RBC Pending Urine WBC Pending Urine Squamous Epithelial Cells Pending Urine Bacteria Pending Microbiology Date/Time Source Procedure Growth Status 08/04/17 20:00 Nasal Nares Influenza Types A,B Antigen (ANN) - Final Complete 08/04/17 17:25 Urine,Clean Catch Urine Culture - Preliminary Gram Negative Bacillus 1 Resulted Height (Feet): 5 Height (Inches): 9.00 Weight (Pounds): 258 Medications Current Medications Medications (Trade) Dose Ordered Sig/Faizan Route PRN Reason Start Time Stop Time Status Last Admin Dose Admin Acetaminophen (Tylenol) 650 mg Q4H PRN ORAL T>100.5 08/04/17 18:15 09/03/17 18:14 Albuterol/ Ipratropium (Albuterol/ Ipratropium) 3 ml Q4H PRN HHN Shortness of Breath 08/04/17 18:15 08/09/17 18:14 Atenolol (Tenormin) 50 mg DAILY ORAL 08/05/17 09:00 09/04/17 08:59 08/05/17 09:37 Atorvastatin Calcium (Lipitor) 80 mg BEDTIME ORAL 08/04/17 21:00 09/03/17 20:59 Cefepime HCl 2 gm/ Sodium Chloride 110 ml @ 220 mls/hr Q24H IV 08/04/17 22:30 08/11/17 22:29 08/04/17 23:21 Dextrose (Dextrose 50%) STAT PRN IV Hypoglycemia 08/04/17 18:15 09/03/17 18:14 Docusate Sodium (Colace) 100 mg TWICE A DAY ORAL 08/05/17 09:00 09/04/17 08:59 08/05/17 09:35 Finasteride (Proscar) 5 mg DAILY ORAL 08/05/17 09:00 09/04/17 08:59 08/05/17 09:35 Folic Acid (Folate) 1 mg DAILY ORAL 08/05/17 09:00 09/04/17 08:59 08/05/17 09:40 Gabapentin (Neurontin) 400 mg THREE TIMES A DAY ORAL 08/05/17 09:00 09/04/17 08:59 08/05/17 12:30 Heparin Sodium/ Dextrose 500 ml @ 42.13 mls/ hr adjust per protocol IV 08/05/17 11:30 09/04/17 11:29 08/05/17 12:02 Insulin Aspart (NovoLOG) BEFORE MEALS AND HS SUBQ 08/04/17 21:00 09/03/17 20:59 08/05/17 11:53 Metoclopramide HCl (Reglan) 10 mg AC+HS ORAL 08/05/17 16:30 09/04/17 16:29 Morphine Sulfate (Morphine Sulfate) 2 mg Q4H PRN IVP Severe Pain (Pain Scale 7-10) 08/04/17 18:15 08/11/17 18:14 08/05/17 01:48 Multivitamins Therapeutic (Therapeutic Multivitamin) 1 ea DAILY ORAL 08/05/17 09:00 09/04/17 08:59 08/05/17 09:35 Nitroglycerin (Ntg) 0.4 mg Q5MIN X 3 DOSES PRN SL Prn Chest Pain 08/04/17 18:30 09/03/17 18:29 Ondansetron HCl (Zofran) 4 mg Q6H PRN IVP Nausea & Vomiting 08/04/17 18:15 09/03/17 18:14 08/05/17 09:35 Oxycodone/ Acetaminophen (Percocet 5-325) 1 tab Q4H PRN ORAL Moderate Pain (Pain Scale 4-6) 08/04/17 18:15 08/11/17 18:14 Polyethylene Glycol (Miralax) 17 gm DAILYPRN PRN ORAL Constipation 08/04/17 18:15 09/03/17 18:14 Sennosides (Senokot) 2 tab QHS ORAL 08/05/17 21:00 09/04/17 20:59 Sodium Chloride 1,000 ml @ 75 mls/hr [id number] IV 08/04/17 23:30 09/03/17 23:29 08/05/17 12:12 Tamsulosin HCl (Flomax) 0.4 mg BEDTIME ORAL 08/04/17 21:00 09/03/17 20:59 Temazepam (Restoril) 15 mg HSPRN PRN ORAL Insomnia 08/04/17 21:00 08/11/17 20:59 Vancomycin HCl (Vanco rx to dose) 1 ea DAILY PRN MISC . 08/04/17 21:15 09/03/17 21:14 Vancomycin HCl/ Dextrose 250 ml @ 166.667 mls/hr Q24H IVPB 08/05/17 23:00 08/10/17 22:59 Assessment/Plan Problem List: (1) Cholelithiasis Assessment & Plan: 77M with distended gallbladder full of stones. has history of decreased appetite from nausea for over 2 months. labs reviewed and okay. also has PE with DVT. -unsure if nausea related to gallstones. -possible cholecystitis / biliary colic which is improving. -need ultrasound and HIDA. -will follow with recs once studies resulted. thank you for this consultation. will follow with you ICD Codes: K80.20 - Calculus of gallbladder without cholecystitis without obstruction SNOMED: [id number] Qualifiers: Status: stable Rashaun Israel Aug 05, 2017 16:12
--- NOTE | 2017-08-05 16:50 | Cardiology Report ---
APPROVED REPORT EXAM: Two-dimensional and M-mode echocardiogram with Doppler and color Doppler. INDICATION Chest Pain M-Mode DIMENSIONS IVSd0.9 (0.7-1.1cm)Left Atrium (MM)2.9 (1.6-4.0cm) LVDd5.0 (3.5-5.6cm)Aortic Root3.0 (2.0-3.7cm) PWd0.9 (0.7-1.1cm)Aortic Cusp Exc.2.0 (1.5-2.0cm) LVDs3.0 (2.5-4.0cm) PWs1.1 cm Technically difficult study due to poor acoustical windows. Normal left ventricular chamber size, systolic function and wall motion. Left ventricular ejection fraction estimated to be 60-65%. No evidence of left ventricular hypertrophy. No evidence of pericardial or pleural effusion. there is increased echos in the pericaridal space which may be fat pad clinical correlation recommneded consider ct of the pericardium of clinically indicated All other cardiac chamber sizes are within normal limits. Focal aortic valve sclerosis with adequate cusp excursion. Normal mitral valve leaflets with normal excursion. Normal mitral annulus and aortic root. Pulmonic valve not well visualized. Normal tricuspid valve structure. IVC is normal in size and collapsible with respiration. A color flow and spectral Doppler study was performed and revealed: No aortic regurgitation. No mitral regurgitation. Mitral diastolic velocities suggest reduced left ventricular relaxation c/w diastolic dysfunction grade 1. No tricuspid regurgitation.
--- NOTE | 2017-08-05 16:59 | Cardiology Report ---
APPROVED REPORT EKG Measurement Heart [id number] CT [id number] Sinus tachycardia Left axis deviation Inferior infarct, age undetermined Anterolateral infarct, age undetermined Abnormal ECG
[2017-08-05 20:00] VITALS: BP 99/60
[2017-08-05] MEDS: Sennosides 8.6mg ORAL SCH (20:27)
[2017-08-05] MEDS: Atorvastatin 80mg tab ORAL SCH (20:27)
[2017-08-05] MEDS: Tamsulosin 0.4mg cap ORAL SCH (20:27)
[2017-08-05] MEDS ORDERED: Vancomycin 1250mg/D5W 250ml IVPB SCH (23:00)
[2017-08-05] MEDS: Cefepime HCl 2 GM in NS 110 ML IV SCH (23:45)
[2017-08-06] VITALS (7 sets, daily range): BP systolic 93–108; BP diastolic 51–61
--- NOTE | 2017-08-06 00:11 | General Progress Note ---
Assessment/Plan Problem List: (1) Acute deep vein thrombosis (DVT) of both lower extremities ICD Codes: I82.403 - Acute embolism and thrombosis of unspecified deep veins of lower extremity, bilateral SNOMED: 183439780281 (2) Pulmonary embolism ICD Codes: I26.99 - Other pulmonary embolism without acute cor pulmonale SNOMED: 83832096 (3) Cholelithiasis ICD Codes: K80.20 - Calculus of gallbladder without cholecystitis without obstruction SNOMED: 385535304 Qualifiers: (4) CKD (chronic kidney disease), stage III ICD Codes: N18.3 - Chronic kidney disease, stage 3 (moderate) SNOMED: 615670784 (5) Morbid obesity ICD Codes: E66.01 - Morbid (severe) obesity due to excess calories SNOMED: 040721267, 28549324410382 (6) HTN (hypertension) ICD Codes: I10 - Essential (primary) hypertension SNOMED: 71725818 (7) Lumbar spinal stenosis ICD Codes: M48.061 - Spinal stenosis, lumbar region without neurogenic claudication SNOMED: 03208752 (8) Osteoarthritis ICD Codes: M19.90 - Unspecified osteoarthritis, unspecified site SNOMED: 794968960 (9) GERD (gastroesophageal reflux disease) ICD Codes: K21.9 - Gastro-esophageal reflux disease without esophagitis SNOMED: 157904927 (10) BPH (benign prostatic hyperplasia) ICD Codes: N40.0 - Benign prostatic hyperplasia without lower urinary tract symptoms SNOMED: 097896341 (11) UTI (urinary tract infection) ICD Codes: N39.0 - Urinary tract infection, site not specified SNOMED: 61779197 (12) Failure to thrive SNOMED: 47220941 (13) Weight loss ICD Codes: R63.4 - Abnormal weight loss SNOMED: 90658741, 366597887 (14) Chronic diastolic (congestive) heart failure ICD Codes: I50.32 - Chronic diastolic (congestive) heart failure SNOMED: 04555021, 887412644 Status: stable Assessment/Plan Surgery consulted given CT a/p findings of distended gallbladder Check HIDA scan Pulm consulted Cont on heparin gtt given PE and b/l DVT TTE shows EF 60-65%, diastolic dysfcn Empiric abx: vanco, cefepime F/u cultures--urine cx showing GNR Trend CBC Trend BMP IVFs Nutrional eval Zofran PRN Pain control, bowel regimen Supportive care Cont SNF meds: ASA, atenolol, statin, flomax, finasteride BASSAM DVT Prophylaxis: HSQ Code Status: Full Hospital Classification Declaration: Based on this initial evaluation, and depending on the patient's clinical course, I anticipate that this patient will require hospitalization for 2-3 days for failure to thrive, cholelithiasis, acute DVT and PE, and close respiratory/hemodynamic monitoring. Disposition: Once the patient is stable to leave the hospital, I anticipate the patient will likely be discharged to the following environment: back to SNF Discussed with patient/family, nursing staff, SW/CM, pulm, surgery regarding clinical status, treatment course, and disposition planning. D/w surgery re possible plan for lap nancy, interruption in anticoag Time of note may not reflect time of encounter. Subjective Date patient seen: Aug 05, 2017 Time patient seen: 12:00 ROS Limited/Unobtainable: No Constitutional: Reports: malaise, weakness HEENT: Reports: no symptoms Cardiovascular: Reports: no symptoms Respiratory: Reports: cough Gastrointestinal/Abdominal: Reports: diarrhea, nausea, poor appetite Neurologic/Psychiatric: Reports: no symptoms Endocrine: Reports: no symptoms Hematologic/Lymphatic: Reports: no symptoms Allergies: Coded Allergies: No Known Allergies (Unverified , 08/04/17) Subjective No acute o/n events Awaiting HIDA scan Nausea slightly better w/ meds. Appetite still poor. Denies pain, f/c, n/v, d/c , chest pain, SOB Objective Last 24 Hour Vital Signs Date Time Temp Pulse Resp B/P (MAP) Pulse Ox O2 Delivery O2 Flow Rate FiO2 08/05/17 16:00 97.3 85 20 112/70 99 Room Air 08/05/17 16:00 85 08/05/17 12:00 86 08/05/17 12:00 97.0 90 20 108/53 95 Room Air 08/05/17 09:37 99 116/67 08/05/17 08:00 98 08/05/17 08:00 97.7 99 20 116/67 96 Room Air 08/05/17 04:00 100 08/05/17 04:00 96.6 98 20 122/68 98 Intake and Output 08/05/17 08/06/17 19:00 07:00 Intake Total 240 ml Output Total 200 ml Balance 40 ml Intake Oral 240 ml Output Urine Total 200 ml # Bowel Movements 1 Laboratory Tests 08/05/17 06:20: White Blood Count 7.2, Red Blood Count 4.59L, Hemoglobin 13.2L, Hematocrit 39.3L , Mean Corpuscular Volume 86, Mean Corpuscular Hemoglobin 28.7, Mean Corpuscular Hemoglobin Concent 33.5, Red Cell Distribution Width 14.1, Platelet Count 203, Mean Platelet Volume 7.2, Neutrophils (%) (Auto) 68.0, Lymphocytes (% ) (Auto) 17.6L, Monocytes (%) (Auto) 11.9H, Eosinophils (%) (Auto) 1.7, Basophils (%) (Auto) 0.8, Erythrocyte Sedimentation Rate 28H, Sodium Level 134L , Potassium Level 3.3L, Chloride Level 97L, Carbon Dioxide Level 24, Anion Gap 13, Blood Urea Nitrogen 24H, Creatinine 1.3, Estimat Glomerular Filtration Rate , Glucose Level 159H, Hemoglobin A1c 7.2H, Calcium Level 9.3, Phosphorus Level 3.3, Magnesium Level 1.4L, Total Bilirubin 1.1H, Direct Bilirubin 0.4H, Aspartate Amino Transf (AST/SGOT) 30, Alanine Aminotransferase (ALT/SGPT) 42, Alkaline Phosphatase 90, Troponin I 0.033, C-Reactive Protein, Quantitative 2.6H , Pro-B-Type Natriuretic Peptide 389H, Total Protein 7.3, Albumin 3.0L, Globulin 4.3, Albumin/Globulin Ratio 0.7L, Vitamin B12 Level 832, Vitamin D 25- Hydroxy [Pending], 25-Hydroxy Vitamin D2 [Pending], 25-Hydroxy Vitamin D3 [ Pending], Folate 7.4L, Thyroid Stimulating Hormone (TSH) 1.350 08/05/17 11:40: White Blood Count 7.3, Red Blood Count 4.64L, Hemoglobin 12.9L, Hematocrit 39.6L , Mean Corpuscular Volume 85, Mean Corpuscular Hemoglobin 27.8, Mean Corpuscular Hemoglobin Concent 32.6, Red Cell Distribution Width 14.5, Platelet Count 196, Mean Platelet Volume 7.9, Neutrophils (%) (Auto) 73.7, Lymphocytes (% ) (Auto) 11.3L, Monocytes (%) (Auto) 12.5H, Eosinophils (%) (Auto) 1.8, Basophils (%) (Auto) 0.7, Activated Partial Thromboplast Time 28 08/05/17 15:35: Urine Color Yellow, Urine Appearance Slightly cloudy, Urine pH 5, Urine Specific [place] 1.015, Urine Protein 2+H, Urine Glucose (UA) Negative, Urine Ketones 2+H, Urine Occult Blood 4+H, Urine Nitrite PositiveH, Urine Bilirubin Negative, Urine Urobilinogen Normal, Urine Leukocyte Esterase 3+H, Urine RBC 2- 4H, Urine WBC TntcH, Urine Squamous Epithelial Cells Few, Urine Bacteria ModerateH 08/05/17 18:00: Activated Partial Thromboplast Time > 150*H Height (Feet): 5 Height (Inches): 9.00 Weight (Pounds): 258 Objective General: alert, cooperative, no distress, appears stated age Head: normocephalic, without obvious abnormality, atraumatic Eyes: conjunctivae/corneas clear. PERRL, EOM's intact Throat: lips, mucosa, and tongue normal. MMM Neck: supple, symmetrical, trachea midline, and no JVD Lungs: clear to auscultation bilaterally Heart: regular rate and rhythm, S1, S2 normal, no murmur, click, rub or gallop Abdomen: soft, non-tender, non-distended, bowel sounds normal; no masses or organomegaly Extremities: extremities normal, atraumatic, no cyanosis or edema Pulses: 2+ and symmetric Skin: skin color, texture, turgor normal; no rashes or lesions Neurologic: grossly normal, no focal deficits Darshana Bonilla M.D. Aug 06, 2017 00:11
[2017-08-06 02:42] LABS: BASOPHILS % (AUTO) 0.9 % (0.0-2.0); EOSINOPHILS % (AUTO) 3.3 % (0.0-3.0); HEMATOCRIT 37.1 % (42.0-52.0); HEMOGLOBIN 12.1 G/DL (14.2-18.0); LYMPHOCYTES % (AUTO) 15.9 % (20.0-45.0); MEAN CORPUSCULAR VOLUME 85 FL (80-99); NEUTROPHILS % (AUTO) 67.9 % (45.0-75.0); PLATELET COUNT 182 K/UL (150-450); RED BLOOD COUNT 4.35 M/UL (4.70-6.10); RED CELL DISTRIBUTION WIDTH 14.1 % (11.6-14.8); WHITE BLOOD COUNT 6.5 K/UL (4.8-10.8)
[2017-08-06 03:14] LABS: CARBON DIOXIDE 27 MMOL/L (21-32); CHLORIDE 98 MMOL/L (98-107); POTASSIUM 3.4 MMOL/L (3.5-5.1); SODIUM 132 MMOL/L (136-145)
[2017-08-06 03:15] LABS: ANION GAP 7 mmol/L (5-15); ASPARTATE AMINO TRANSFERASE 27 U/L (15-37); BILIRUBIN,TOTAL 0.9 MG/DL (0.2-1.0); BLOOD UREA NITROGEN 21 mg/dL (7-18); CALCIUM 8.9 MG/DL (8.5-10.1); CREATININE 1.3 MG/DL (0.55-1.30); PHOSPHORUS 3.2 MG/DL (2.5-4.9)
[2017-08-06 03:16] LABS: ALANINE AMINOTRANSFERASE 36 U/L (12-78); ALBUMIN 2.6 G/DL (3.4-5.0); ALBUMIN/GLOBULIN RATIO 0.6 (1.0-2.7); ALKALINE PHOSPHATASE 84 U/L (46-116)
[2017-08-06] MEDS ORDERED: Heparin 25,000u/D5W 500ml 500 ML IV SCH (04:30)
[2017-08-06] MEDS: NovoLOG Insulin Flexpen SUBQ SCH ×4 (06:33→20:48)
[2017-08-06] MEDS: Multivitamin w/Minerals tab ORAL SCH (08:48)
[2017-08-06] MEDS: Docusate 100mg cap ORAL SCH ×2 (08:48→17:31)
--- NOTE | 2017-08-06 10:04 | Emergency Room Report ---
History of Present Illness General Chief Complaint: General Complaint Source: Patient, Medical Record, PMD Present Illness HPI Patient is a 77 year old male brought in by EMS after increased generalized weakness and inability to eat. Patient states that he's had multiple episodes of nausea without vomiting. He states he was able to drink fluids. He states he feels something stuck in his throat. He denied fever. He reports prior history of gallstones. He denied diarrhea. Allergies: Coded Allergies: No Known Allergies (Unverified , 08/04/17) Patient History Past Medical History: see triage record Reviewed Nursing Documentation: PMH: Agreed, PSxH: Agreed Nursing Documentation-PMH Hx Cardiac Problems: No Hx Hypertension: Yes - high cholesterol Hx Diabetes: Yes Hx Cancer: No Hx Gastrointestinal Problems: Yes - Possible Gallstones Hx Neurological Problems: No Review of Systems All Other Systems: negative except mentioned in HPI Physical Exam Vital Signs Date Time Temp Pulse Resp B/P (MAP) Pulse Ox O2 Delivery O2 Flow Rate FiO2 08/04/17 15:59 98.0 78 20 144/67 94 Room Air 98.1 Sp02 EP Interpretation: reviewed, normal General Appearance: normal inspection, alert, Chronically Ill Head: atraumatic Eyes: bilateral eye PERRL ENT: normal ENT inspection, hearing grossly normal, normal voice Neck: normal inspection, supple, no bony tend, limited range of motion Respiratory: normal inspection, lungs clear, normal breath sounds, no respiratory distress, no retraction, no wheezing Cardiovascular #1: regular rate, rhythm, no edema Gastrointestinal: normal inspection, normal bowel sounds, non tender, soft, no guarding, no hernia Genitourinary: no CVA tenderness Musculoskeletal: normal inspection, back normal, normal range of motion Neurologic: normal inspection, alert, responsive, speech normal Psychiatric: normal inspection, judgement/insight normal, mood/affect normal Skin: normal inspection, normal color, no rash Medical Decision Making Diagnostic Impression: Primary Impression: Generalized weakness Additional Impressions: Failure to thrive in adult Cholelithiasis Pulmonary embolism ER Course Patient presented for generalized weakness and failure to thrive. Differential diagnosis included but was not limited to cancer, mesenteric ischemia, gallbladder disease, myocardial infarction among others. Because of patient complexity imaging and laboratory studies were ordered. Laboratory testing showed normal white blood count. CT of chest read by radiology showed small to moderate pulmonary embolism. CT of abdomen and pelvis showed multiple gallbladder stones with distention in addition to other findings per report. Dr. Melchor was contacted for Dr. Martinez for inpatient management. Dr. Israel was contacted for surgical consult. Laboratory Tests Test 08/04/17 17:10 08/04/17 17:25 08/05/17 06:20 08/05/17 11:40 White Blood Count 8.1 K/UL (4.8-10.8) 7.2 K/UL (4.8-10.8) 7.3 K/UL (4.8-10.8) Red Blood Count 5.01 M/UL (4.70-6.10) 4.59 M/UL (4.70-6.10) L 4.64 M/UL (4.70-6.10) L Hemoglobin 14.5 G/DL (14.2-18.0) 13.2 G/DL (14.2-18.0) L 12.9 G/DL (14.2-18.0) L Hematocrit 43.1 % (42.0-52.0) 39.3 % (42.0-52.0) L 39.6 % (42.0-52.0) L Mean Corpuscular Volume 86 FL (80-99) 86 FL (80-99) 85 FL (80-99) Mean Corpuscular Hemoglobin 29.0 PG (27.0-31.0) 28.7 PG (27.0-31.0) 27.8 PG (27.0-31.0) Mean Corpuscular Hemoglobin Concent 33.7 G/DL (32.0-36.0) 33.5 G/DL (32.0-36.0) 32.6 G/DL (32.0-36.0) Red Cell Distribution Width 14.3 % (11.6-14.8) 14.1 % (11.6-14.8) 14.5 % (11.6-14.8) Platelet Count 221 K/UL (150-450) 203 K/UL (150-450) 196 K/UL (150-450) Mean Platelet Volume 7.0 FL (6.5-10.1) 7.2 FL (6.5-10.1) 7.9 FL (6.5-10.1) Neutrophils (%) (Auto) 76.4 % (45.0-75.0) H 68.0 % (45.0-75.0) 73.7 % (45.0-75.0) Lymphocytes (%) (Auto) 11.5 % (20.0-45.0) L 17.6 % (20.0-45.0) L 11.3 % (20.0-45.0) L Monocytes (%) (Auto) 10.9 % (1.0-10.0) H 11.9 % (1.0-10.0) H 12.5 % (1.0-10.0) H Eosinophils (%) (Auto) 0.7 % (0.0-3.0) 1.7 % (0.0-3.0) 1.8 % (0.0-3.0) Basophils (%) (Auto) 0.6 % (0.0-2.0) 0.8 % (0.0-2.0) 0.7 % (0.0-2.0) Sodium Level 136 MMOL/L (136-145) 134 MMOL/L (136-145) L Potassium Level 4.0 MMOL/L (3.5-5.1) 3.3 MMOL/L (3.5-5.1) L Chloride Level 96 MMOL/L (98-107) L 97 MMOL/L (98-107) L Carbon Dioxide Level 28 MMOL/L (21-32) 24 MMOL/L (21-32) Anion Gap 12 mmol/L (5-15) 13 mmol/L (5-15) Blood Urea Nitrogen 29 mg/dL (7-18) H 24 mg/dL (7-18) H Creatinine 1.4 MG/DL (0.55-1.30) H 1.3 MG/DL (0.55-1.30) Estimate Glomerular Filtration Rate mL/min (>60) mL/min (>60) Glucose Level 169 MG/DL (74-106) H 159 MG/DL (74-106) H Lactic Acid Level 1.40 mmol/L (0.66-2.22) Calcium Level 9.6 MG/DL (8.5-10.1) 9.3 MG/DL (8.5-10.1) Total Bilirubin 1.5 MG/DL (0.2-1.0) H 1.1 MG/DL (0.2-1.0) H Direct Bilirubin 0.7 MG/DL (0.0-0.3) H 0.4 MG/DL (0.0-0.3) H Aspartate Amino Transferase (AST) 35 U/L (15-37) 30 U/L (15-37) Alanine Aminotransferase (ALT) 50 U/L (12-78) 42 U/L (12-78) Alkaline Phosphatase 107 U/L (46-116) 90 U/L (46-116) Total Creatine Kinase 35 U/L (26-308) Creatine Kinase MB 1.5 NG/ML (0.0-3.6) Creatine Kinase MB Relative Index 4.2 Troponin I 0.005 ng/mL (0.000-0.056) 0.033 ng/mL (0.000-0.056) Total Protein 8.2 G/DL (6.4-8.2) 7.3 G/DL (6.4-8.2) Albumin 3.5 G/DL (3.4-5.0) 3.0 G/DL (3.4-5.0) L Globulin 4.7 g/dL 4.3 g/dL Albumin/Globulin Ratio 0.7 (1.0-2.7) L 0.7 (1.0-2.7) L Urine Color Brown Urine Appearance Slightly cloudy Urine pH 5 (4.5-8.0) Urine Specific [place] 1.020 (1.005-1.035) Urine Protein 2+ (NEGATIVE) H Urine Glucose (UA) Negative (NEGATIVE) Urine Ketones 2+ (NEGATIVE) H Urine Occult Blood 4+ (NEGATIVE) H Urine Nitrite Negative (NEGATIVE) Urine Bilirubin 1+ (NEGATIVE) H Urine Ictotest Negative Urine Urobilinogen 8 MG/DL (0.0-1.0) H Urine Leukocyte Esterase 3+ (NEGATIVE) H Urine RBC 5-10 /HPF (0 - 0) H Urine WBC 10-15 /HPF (0 - 0) H Urine Squamous Epithelial Cells None /LPF (NONE/OCC) Urine Amorphous Sediment Few /LPF (NONE) H Urine Bacteria Many /HPF (NONE) H Erythrocyte Sedimentation Rate 28 MM/HR (0-20) H Hemoglobin A1c 7.2 % (4.3-6.0) H Phosphorus Level 3.3 MG/DL (2.5-4.9) Magnesium Level 1.4 MG/DL (1.8-2.4) L C-Reactive Protein, Quantitative 2.6 mg/dL (0.00-0.90) H Pro-B-Type Natriuretic Peptide 389 pg/mL (0-125) H Vitamin B12 Level 832 PG/ML (193-986) Vitamin D 25-Hydroxy Pending 25-Hydroxy Vitamin D2 Pending 25-Hydroxy Vitamin D3 Pending Folate 7.4 NG/ML (8.6-58.9) L Thyroid Stimulating Hormone (TSH) 1.350 uiU/mL (0.358-3.740) PTT 28 SEC (23-33) Test 08/05/17 15:35 08/05/17 18:00 08/06/17 02:00 Urine Color Yellow Urine Appearance Slightly cloudy Urine pH 5 (4.5-8.0) Urine Specific [place] 1.015 (1.005-1.035) Urine Protein 2+ (NEGATIVE) H Urine Glucose (UA) Negative (NEGATIVE) Urine Ketones 2+ (NEGATIVE) H Urine Occult Blood 4+ (NEGATIVE) H Urine Nitrite Positive (NEGATIVE) H Urine Bilirubin Negative (NEGATIVE) Urine Urobilinogen Normal MG/DL (0.0-1.0) Urine Leukocyte Esterase 3+ (NEGATIVE) H Urine RBC 2-4 /HPF (0 - 0) H Urine WBC Tntc /HPF (0 - 0) H Urine Squamous Epithelial Cells Few /LPF (NONE/OCC) Urine Bacteria Moderate /HPF (NONE) H PTT > 150 SEC (23-33) *H > 150 SEC (23-33) *H White Blood Count 6.5 K/UL (4.8-10.8) Red Blood Count 4.35 M/UL (4.70-6.10) L Hemoglobin 12.1 G/DL (14.2-18.0) L Hematocrit 37.1 % (42.0-52.0) L Mean Corpuscular Volume 85 FL (80-99) Mean Corpuscular Hemoglobin 27.9 PG (27.0-31.0) Mean Corpuscular Hemoglobin Concent 32.7 G/DL (32.0-36.0) Red Cell Distribution Width 14.1 % (11.6-14.8) Platelet Count 182 K/UL (150-450) Mean Platelet Volume 8.1 FL (6.5-10.1) Neutrophils (%) (Auto) 67.9 % (45.0-75.0) Lymphocytes (%) (Auto) 15.9 % (20.0-45.0) L Monocytes (%) (Auto) 12.0 % (1.0-10.0) H Eosinophils (%) (Auto) 3.3 % (0.0-3.0) H Basophils (%) (Auto) 0.9 % (0.0-2.0) Erythrocyte Sedimentation Rate 22 MM/HR (0-20) H Sodium Level 132 MMOL/L (136-145) L Potassium Level 3.4 MMOL/L (3.5-5.1) L Chloride Level 98 MMOL/L (98-107) Carbon Dioxide Level 27 MMOL/L (21-32) Anion Gap 7 mmol/L (5-15) Blood Urea Nitrogen 21 mg/dL (7-18) H Creatinine 1.3 MG/DL (0.55-1.30) Estimate Glomerular Filtration Rate mL/min (>60) Glucose Level 198 MG/DL (74-106) H Calcium Level 8.9 MG/DL (8.5-10.1) Phosphorus Level 3.2 MG/DL (2.5-4.9) Magnesium Level 1.7 MG/DL (1.5-2.4) Total Bilirubin 0.9 MG/DL (0.2-1.0) Aspartate Amino Transferase (AST) 27 U/L (15-37) Alanine Aminotransferase (ALT) 36 U/L (12-78) Alkaline Phosphatase 84 U/L (46-116) Troponin I 0.037 ng/mL (0.000-0.056) Total Protein 6.7 G/DL (6.4-8.2) Albumin 2.6 G/DL (3.4-5.0) L Globulin 4.1 g/dL Albumin/Globulin Ratio 0.6 (1.0-2.7) L Microbiology Date/Time Source Procedure Growth Status 08/04/17 20:00 Nasal Nares Influenza Types A,B Antigen (ANN) - Final Complete 08/04/17 17:25 Urine,Clean Catch Urine Culture - Final Escherichia Coli - Esbl Complete 08/04/17 20:00 Rectal Mucosa VRE Culture - Final NO VANCOMYCIN RESISTANT ENTEROCOCCUS ... Complete Last Vital Signs Date Time Temp Pulse Resp B/P (MAP) Pulse Ox O2 Delivery O2 Flow Rate FiO2 08/06/17 08:55 80 97/58 08/06/17 08:00 97.0 18 94 Room Air Status: unchanged Disposition: ADMITTED INPATIENT Condition: Serious Referrals: ADDIE GARG (PCP) Everette Ochoa Aug 06, 2017 10:04
--- NOTE | 2017-08-06 12:20 | Diagnostic Imaging Report ---
Indication: Abdominal Pain Technique: 5 mCi of technetium 99 m-Choletec was injected intravenously. Planar imaging of the abdomen was then performed every 5 minutes up to 30 minutes and every 10 minutes up to one hour. Oblique views were also obtained. 2 mg morphine given intravenously and 65 minute point. Findings: There is prompt uptake within the liver with good washout of radiotracer from the liver on subsequent imaging. There is excretion into the biliary ducts. Gallbladder activity is present after morphine was administered indicating patency of the cystic duct. Bowel activity is demonstrated in a timely fashion indicating patency of the common bile duct. Impression: Normal HIDA scan
--- NOTE | 2017-08-06 12:29 | Pulmonology Progress Note ---
Assessment/Plan Problems: (1) Pulmonary embolism (2) DVT (deep venous thrombosis) (3) Sepsis (4) Morbid obesity (5) Chronic renal insufficiency Assessment/Plan Echo reviewed, EF of 60% on heparin drip HIDA scan in process f/u urine culture results continue cefepime pt/ot Subjective ROS Limited/Unobtainable: No Constitutional: Reports: no symptoms HEENT: Repors: no symptoms Allergies: Coded Allergies: No Known Allergies (Unverified , 08/04/17) Objective Last 24 Hour Vital Signs Date Time Temp Pulse Resp B/P (MAP) Pulse Ox O2 Delivery O2 Flow Rate FiO2 08/06/17 09:00 80 97/58 08/06/17 08:55 80 97/58 08/06/17 08:15 75 16 Room Air 21 08/06/17 08:00 97.0 80 18 95/61 94 Room Air 08/06/17 04:00 97.8 61 21 103/53 94 Room Air 08/06/17 03:19 82 08/06/17 00:00 82 08/06/17 00:00 98.2 82 20 99/58 94 Room Air 08/05/17 20:00 98.7 83 20 99/60 93 Room Air 08/05/17 19:05 82 08/05/17 16:00 97.3 85 20 112/70 99 Room Air 08/05/17 16:00 85 Intake and Output 08/05/17 08/06/17 19:00 07:00 Intake Total 240 ml 553.334 ml Output Total 200 ml 100 ml Balance 40 ml 453.334 ml Intake Oral 240 ml IV Total 553.334 ml Output Urine Total 200 ml 100 ml # Bowel Movements 1 General Appearance: WD/WN HEENT: normocephalic, atraumatic Respiratory/Chest: chest wall non-tender, lungs clear Cardiovascular: normal peripheral pulses, regular rhythm Abdomen: normal bowel sounds, soft, non tender Extremities: no cyanosis Skin: no lesions 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 Complete Laboratory Tests 08/05/17 15:35: Urine Color Yellow, Urine Appearance Slightly cloudy, Urine pH 5, Urine Specific [place] 1.015, Urine Protein 2+H, Urine Glucose (UA) Negative, Urine Ketones 2+H, Urine Occult Blood 4+H, Urine Nitrite PositiveH, Urine Bilirubin Negative, Urine Urobilinogen Normal, Urine Leukocyte Esterase 3+H, Urine RBC 2- 4H, Urine WBC TntcH, Urine Squamous Epithelial Cells Few, Urine Bacteria ModerateH 08/05/17 18:00: Activated Partial Thromboplast Time > 150*H 08/06/17 02:00: Activated Partial Thromboplast Time > 150*H, White Blood Count 6.5, Red Blood Count 4.35L, Hemoglobin 12.1L, Hematocrit 37.1L, Mean Corpuscular Volume 85, Mean Corpuscular Hemoglobin 27.9, Mean Corpuscular Hemoglobin Concent 32.7, Red Cell Distribution Width 14.1, Platelet Count 182, Mean Platelet Volume 8.1, Neutrophils (%) (Auto) 67.9, Lymphocytes (%) (Auto) 15.9L, Monocytes (%) (Auto) 12.0H, Eosinophils (%) (Auto) 3.3H, Basophils (%) (Auto) 0.9, Erythrocyte Sedimentation Rate 22H, Sodium Level 132L, Potassium Level 3.4L, Chloride Level 98, Carbon Dioxide Level 27, Anion Gap 7, Blood Urea Nitrogen 21H, Creatinine 1.3, Estimat Glomerular Filtration Rate , Glucose Level 198H, Calcium Level 8.9 , Phosphorus Level 3.2, Magnesium Level 1.7, Total Bilirubin 0.9, Aspartate Amino Transf (AST/SGOT) 27, Alanine Aminotransferase (ALT/SGPT) 36, Alkaline Phosphatase 84, Troponin I 0.037, Total Protein 6.7, Albumin 2.6L, Globulin 4.1 , Albumin/Globulin Ratio 0.6L Current Medications Medications (Trade) Dose Ordered Sig/Faizan Route PRN Reason Start Time Stop Time Status Last Admin Dose Admin Acetaminophen (Tylenol) 650 mg Q4H PRN ORAL T>100.5 08/04/17 18:15 09/03/17 18:14 Albuterol/ Ipratropium (Albuterol/ Ipratropium) 3 ml Q4H PRN HHN Shortness of Breath 08/04/17 18:15 08/09/17 18:14 Atenolol (Tenormin) 50 mg DAILY ORAL 08/05/17 09:00 09/04/17 08:59 08/05/17 09:37 Atorvastatin Calcium (Lipitor) 80 mg BEDTIME ORAL 08/04/17 21:00 09/03/17 20:59 08/05/17 20:27 Cefepime HCl 2 gm/ Sodium Chloride 110 ml @ 220 mls/hr Q24H IV 08/04/17 22:30 08/11/17 22:29 08/05/17 23:45 Dextrose (Dextrose 50%) STAT PRN IV Hypoglycemia 08/04/17 18:15 09/03/17 18:14 Docusate Sodium (Colace) 100 mg TWICE A DAY ORAL 08/05/17 09:00 09/04/17 08:59 08/06/17 08:48 Finasteride (Proscar) 5 mg DAILY ORAL 08/05/17 09:00 09/04/17 08:59 08/06/17 08:48 Folic Acid (Folate) 1 mg DAILY ORAL 08/05/17 09:00 09/04/17 08:59 08/06/17 08:48 Gabapentin (Neurontin) 400 mg THREE TIMES A DAY ORAL 08/05/17 09:00 09/04/17 08:59 08/06/17 08:48 Heparin Sodium/ Dextrose 500 ml @ 23.405 mls/ hr adjust per protocol IV 08/06/17 04:30 09/05/17 04:29 08/06/17 07:03 Insulin Aspart (NovoLOG) BEFORE MEALS AND HS SUBQ 08/04/17 21:00 09/03/17 20:59 08/06/17 06:33 Metoclopramide HCl (Reglan) 10 mg AC+HS ORAL 08/05/17 16:30 09/04/17 16:29 08/05/17 20:28 Morphine Sulfate (Morphine Sulfate) 2 mg Q4H PRN IVP Severe Pain (Pain Scale 7-10) 08/04/17 18:15 08/11/17 18:14 08/05/17 01:48 Multivitamins Therapeutic (Therapeutic Multivitamin) 1 ea DAILY ORAL 08/05/17 09:00 09/04/17 08:59 08/06/17 08:48 Nitroglycerin (Ntg) 0.4 mg Q5MIN X 3 DOSES PRN SL Prn Chest Pain 08/04/17 18:30 09/03/17 18:29 Ondansetron HCl (Zofran) 4 mg Q6H PRN IVP Nausea & Vomiting 08/04/17 18:15 09/03/17 18:14 08/05/17 09:35 Oxycodone/ Acetaminophen (Percocet 5-325) 1 tab Q4H PRN ORAL Moderate Pain (Pain Scale 4-6) 08/04/17 18:15 08/11/17 18:14 Polyethylene Glycol (Miralax) 17 gm DAILYPRN PRN ORAL Constipation 08/04/17 18:15 09/03/17 18:14 Sennosides (Senokot) 2 tab QHS ORAL 08/05/17 21:00 09/04/17 20:59 08/05/17 20:27 Sodium Chloride 1,000 ml @ 75 mls/hr [id number] IV 08/04/17 23:30 09/03/17 23:29 08/06/17 02:10 Tamsulosin HCl (Flomax) 0.4 mg BEDTIME ORAL 08/04/17 21:00 09/03/17 20:59 08/05/17 20:27 Temazepam (Restoril) 15 mg HSPRN PRN ORAL Insomnia 08/04/17 21:00 08/11/17 20:59 Vancomycin HCl (Vanco rx to dose) 1 ea DAILY PRN MISC . 08/04/17 21:15 09/03/17 21:14 Vancomycin HCl/ Dextrose 250 ml @ 166.667 mls/hr Q24H IVPB 08/05/17 23:00 08/10/17 22:59 08/05/17 23:47 YASMIN MERCADO Aug 06, 2017 12:29
[2017-08-06] MEDS ORDERED: IMIPENEM/CILASTATIN IV 500 MG in NS 110 ML IV SCH (12:45)
[2017-08-06] MEDS: Morphine Sulfate 2mg/ml Inj IVP PRN (13:02)
--- NOTE | 2017-08-06 13:11 | Diagnostic Imaging Report ---
Indication:Abdominal pain Technique: Grayscale and duplex Doppler imaging of the abdomen performed. Comparison: None Findings: Study is limited by body habitus and continuous cough. Gallstones are present. There is no biliary dilatation. No hydronephrosis or free fluid identified. There is a cyst in the right kidney measuring 2.8 cm. Pancreas and aorta are poorly seen. Main portal vein is patent by Doppler examination. IMPRESSION: Cholelithiasis. Right renal cyst Limited study as discussed above
[2017-08-06] MEDS: NS w/KCl 20mEq 1,000 ML IV SCH (13:54)
[2017-08-06] MEDS: Meropenem 1gm/NS 110ml IVPB SCH ×2 (13:54)
--- NOTE | 2017-08-06 16:23 | General Surgery Progress Note ---
General Surgery-Progress Note Subjective Additional Comments doing well. no pain. mild nausea. no emesis. Objective Last 24 Hour Vital Signs Date Time Temp Pulse Resp B/P (MAP) Pulse Ox O2 Delivery O2 Flow Rate FiO2 08/06/17 16:00 97.6 88 20 93/56 95 Room Air 08/06/17 13:00 97.2 88 18 99/51 93 Room Air 08/06/17 12:00 81 08/06/17 09:00 80 97/58 08/06/17 08:55 80 97/58 08/06/17 08:15 75 16 Room Air 21 08/06/17 08:00 97.0 80 18 95/61 94 Room Air 08/06/17 08:00 80 08/06/17 04:00 97.8 61 21 103/53 94 Room Air 08/06/17 03:19 82 08/06/17 00:00 82 08/06/17 00:00 98.2 82 20 99/58 94 Room Air 08/05/17 20:00 98.7 83 20 99/60 93 Room Air 08/05/17 19:05 82 I&O Intake and Output 08/05/17 08/06/17 19:00 07:00 Intake Total 240 ml 553.334 ml Output Total 200 ml 100 ml Balance 40 ml 453.334 ml Intake Oral 240 ml IV Total 553.334 ml Output Urine Total 200 ml 100 ml # Bowel Movements 1 Cardiovascular: RSR Respiratory: clear Abdomen: soft, flat, non-tender, present bowel sounds Extremities: no cyanosis Laboratory Tests Test 08/05/17 18:00 08/06/17 02:00 Activated Partial Thromboplast Time > 150 SEC (23-33) *H > 150 SEC (23-33) *H White Blood Count 6.5 K/UL (4.8-10.8) Red Blood Count 4.35 M/UL (4.70-6.10) L Hemoglobin 12.1 G/DL (14.2-18.0) L Hematocrit 37.1 % (42.0-52.0) L Mean Corpuscular Volume 85 FL (80-99) Mean Corpuscular Hemoglobin 27.9 PG (27.0-31.0) Mean Corpuscular Hemoglobin Concent 32.7 G/DL (32.0-36.0) Red Cell Distribution Width 14.1 % (11.6-14.8) Platelet Count 182 K/UL (150-450) Mean Platelet Volume 8.1 FL (6.5-10.1) Neutrophils (%) (Auto) 67.9 % (45.0-75.0) Lymphocytes (%) (Auto) 15.9 % (20.0-45.0) L Monocytes (%) (Auto) 12.0 % (1.0-10.0) H Eosinophils (%) (Auto) 3.3 % (0.0-3.0) H Basophils (%) (Auto) 0.9 % (0.0-2.0) Erythrocyte Sedimentation Rate 22 MM/HR (0-20) H Sodium Level 132 MMOL/L (136-145) L Potassium Level 3.4 MMOL/L (3.5-5.1) L Chloride Level 98 MMOL/L (98-107) Carbon Dioxide Level 27 MMOL/L (21-32) Anion Gap 7 mmol/L (5-15) Blood Urea Nitrogen 21 mg/dL (7-18) H Creatinine 1.3 MG/DL (0.55-1.30) Estimat Glomerular Filtration Rate mL/min (>60) Glucose Level 198 MG/DL (74-106) H Calcium Level 8.9 MG/DL (8.5-10.1) Phosphorus Level 3.2 MG/DL (2.5-4.9) Magnesium Level 1.7 MG/DL (1.5-2.4) Total Bilirubin 0.9 MG/DL (0.2-1.0) Aspartate Amino Transf (AST/SGOT) 27 U/L (15-37) Alanine Aminotransferase (ALT/SGPT) 36 U/L (12-78) Alkaline Phosphatase 84 U/L (46-116) Troponin I 0.037 ng/mL (0.000-0.056) Total Protein 6.7 G/DL (6.4-8.2) Albumin 2.6 G/DL (3.4-5.0) L Globulin 4.1 g/dL Albumin/Globulin Ratio 0.6 (1.0-2.7) L Plan Problems: (1) Cholelithiasis Assessment & Plan: 77M with distended gallbladder full of stones. has history of decreased appetite from nausea for over 2 months. labs reviewed and okay. also has PE with DVT. unsure if nausea related to gallstones. CT demonstrated gallbladder full of stones Ultrasound demonstrated same without any signs of cholecystitis HIDA normal -Given above findings likely asymptomatic cholelithiasis noted incidentally on imaging. no real history of biliary colic and nausea unlikely to be related. -no surgical intervention necessary at this time -can follow with me as an outpatient once discharged. thank you for this consultation. will follow with you Rashaun Israel Aug 06, 2017 16:23
--- NOTE | 2017-08-06 19:37 | Infectious Diseases Prog Note ---
Assessment/Plan Assessment/Plan Full consult dictated: A) 1) esbl e.coli uti 2) PE, dvt 3) pmh noted P) 1) meropenem for 10 days, can also use ertapenem if less frequent dosing is needed 2) continue tx per primary and consultants 3) thank you Subjective Allergies: Coded Allergies: No Known Allergies (Unverified , 08/04/17) Objective Vital Signs Last 24 Hour Vital Signs Date Time Temp Pulse Resp B/P (MAP) Pulse Ox O2 Delivery O2 Flow Rate FiO2 08/06/17 16:00 88 08/06/17 16:00 97.6 88 20 93/56 95 Room Air 08/06/17 13:00 97.2 88 18 99/51 93 Room Air 08/06/17 12:00 81 08/06/17 09:00 80 97/58 08/06/17 08:55 80 97/58 08/06/17 08:15 75 16 Room Air 21 08/06/17 08:00 97.0 80 18 95/61 94 Room Air 08/06/17 08:00 80 08/06/17 04:00 97.8 61 21 103/53 94 Room Air 08/06/17 03:19 82 08/06/17 00:00 82 08/06/17 00:00 98.2 82 20 99/58 94 Room Air 08/05/17 20:00 98.7 83 20 99/60 93 Room Air Height (Feet): 5 Height (Inches): 9.00 Weight (Pounds): 262 Microbiology Date/Time Source Procedure Growth Status 08/04/17 17:10 Blood Blood Culture - Preliminary NO GROWTH AFTER 24 HOURS Resulted 08/04/17 17:10 Blood Blood Culture - Preliminary NO GROWTH AFTER 24 HOURS Resulted 08/05/17 01:40 Sputum Gram Stain - Final Resulted 08/05/17 01:40 Sputum Sputum Culture Pending Resulted 08/04/17 20:00 Nasal Nares Influenza Types A,B Antigen (ANN) - Final Complete 08/05/17 15:35 Urine,Clean Catch Urine Culture - Preliminary NO GROWTH Resulted 08/04/17 17:25 Urine,Clean Catch Urine Culture - Final Escherichia Coli - Esbl Complete 08/04/17 20:00 Rectal Mucosa VRE Culture - Final NO VANCOMYCIN RESISTANT ENTEROCOCCUS ... Complete Laboratory Tests Test 08/06/17 02:00 08/06/17 18:35 White Blood Count 6.5 K/UL (4.8-10.8) Red Blood Count 4.35 M/UL (4.70-6.10) L Hemoglobin 12.1 G/DL (14.2-18.0) L Hematocrit 37.1 % (42.0-52.0) L Mean Corpuscular Volume 85 FL (80-99) Mean Corpuscular Hemoglobin 27.9 PG (27.0-31.0) Mean Corpuscular Hemoglobin Concent 32.7 G/DL (32.0-36.0) Red Cell Distribution Width 14.1 % (11.6-14.8) Platelet Count 182 K/UL (150-450) Mean Platelet Volume 8.1 FL (6.5-10.1) Neutrophils (%) (Auto) 67.9 % (45.0-75.0) Lymphocytes (%) (Auto) 15.9 % (20.0-45.0) L Monocytes (%) (Auto) 12.0 % (1.0-10.0) H Eosinophils (%) (Auto) 3.3 % (0.0-3.0) H Basophils (%) (Auto) 0.9 % (0.0-2.0) Erythrocyte Sedimentation Rate 22 MM/HR (0-20) H Activated Partial Thromboplast Time > 150 SEC (23-33) *H 94 SEC (23-33) H Sodium Level 132 MMOL/L (136-145) L Potassium Level 3.4 MMOL/L (3.5-5.1) L Chloride Level 98 MMOL/L (98-107) Carbon Dioxide Level 27 MMOL/L (21-32) Anion Gap 7 mmol/L (5-15) Blood Urea Nitrogen 21 mg/dL (7-18) H Creatinine 1.3 MG/DL (0.55-1.30) Estimat Glomerular Filtration Rate mL/min (>60) Glucose Level 198 MG/DL (74-106) H Calcium Level 8.9 MG/DL (8.5-10.1) Phosphorus Level 3.2 MG/DL (2.5-4.9) Magnesium Level 1.7 MG/DL (1.5-2.4) Total Bilirubin 0.9 MG/DL (0.2-1.0) Aspartate Amino Transf (AST/SGOT) 27 U/L (15-37) Alanine Aminotransferase (ALT/SGPT) 36 U/L (12-78) Alkaline Phosphatase 84 U/L (46-116) Troponin I 0.037 ng/mL (0.000-0.056) Total Protein 6.7 G/DL (6.4-8.2) Albumin 2.6 G/DL (3.4-5.0) L Globulin 4.1 g/dL Albumin/Globulin Ratio 0.6 (1.0-2.7) L Current Medications Medications (Trade) Dose Ordered Sig/Faizan Route PRN Reason Start Time Stop Time Status Last Admin Dose Admin Acetaminophen (Tylenol) 650 mg Q4H PRN ORAL T>100.5 08/04/17 18:15 09/03/17 18:14 Albuterol/ Ipratropium (Albuterol/ Ipratropium) 3 ml Q4H PRN HHN Shortness of Breath 08/04/17 18:15 08/09/17 18:14 Atenolol (Tenormin) 50 mg DAILY ORAL 08/05/17 09:00 09/04/17 08:59 08/05/17 09:37 Atorvastatin Calcium (Lipitor) 80 mg BEDTIME ORAL 08/04/17 21:00 09/03/17 20:59 08/05/17 20:27 Dextrose (Dextrose 50%) STAT PRN IV Hypoglycemia 08/04/17 18:15 09/03/17 18:14 Docusate Sodium (Colace) 100 mg TWICE A DAY ORAL 08/05/17 09:00 09/04/17 08:59 08/06/17 17:31 Finasteride (Proscar) 5 mg DAILY ORAL 08/05/17 09:00 09/04/17 08:59 08/06/17 08:48 Folic Acid (Folate) 1 mg DAILY ORAL 08/05/17 09:00 09/04/17 08:59 08/06/17 08:48 Gabapentin (Neurontin) 400 mg THREE TIMES A DAY ORAL 08/05/17 09:00 09/04/17 08:59 08/06/17 17:31 Heparin Sodium/ Dextrose 500 ml @ 23.405 mls/ hr adjust per protocol IV 08/06/17 04:30 09/05/17 04:29 08/06/17 07:03 Insulin Aspart (NovoLOG) BEFORE MEALS AND HS SUBQ 08/04/17 21:00 09/03/17 20:59 08/06/17 16:30 Meropenem 1 gm/ Sodium Chloride 110 ml @ 220 mls/hr Q12H IVPB 08/06/17 14:00 08/11/17 13:59 08/06/17 13:54 Metoclopramide HCl (Reglan) 10 mg AC+HS ORAL 08/05/17 16:30 09/04/17 16:29 08/06/17 16:25 Morphine Sulfate (Morphine Sulfate) 2 mg Q4H PRN IVP Severe Pain (Pain Scale 7-10) 08/04/17 18:15 08/11/17 18:14 08/06/17 13:02 Multivitamins Therapeutic (Therapeutic Multivitamin) 1 ea DAILY ORAL 08/05/17 09:00 09/04/17 08:59 08/06/17 08:48 Nitroglycerin (Ntg) 0.4 mg Q5MIN X 3 DOSES PRN SL Prn Chest Pain 08/04/17 18:30 09/03/17 18:29 Ondansetron HCl (Zofran) 4 mg Q6H PRN IVP Nausea & Vomiting 08/04/17 18:15 09/03/17 18:14 08/05/17 09:35 Oxycodone/ Acetaminophen (Percocet 5-325) 1 tab Q4H PRN ORAL Moderate Pain (Pain Scale 4-6) 08/04/17 18:15 08/11/17 18:14 Polyethylene Glycol (Miralax) 17 gm DAILYPRN PRN ORAL Constipation 08/04/17 18:15 09/03/17 18:14 Sennosides (Senokot) 2 tab QHS ORAL 08/05/17 21:00 09/04/17 20:59 08/05/17 20:27 Sodium Chloride 1,000 ml @ 75 mls/hr [id number] IV 08/06/17 13:30 09/05/17 13:29 08/06/17 13:54 Tamsulosin HCl (Flomax) 0.4 mg BEDTIME ORAL 08/04/17 21:00 09/03/17 20:59 08/05/17 20:27 Temazepam (Restoril) 15 mg HSPRN PRN ORAL Insomnia 08/04/17 21:00 08/11/17 20:59 [facility] NOLAND Aug 06, 2017 19:37
[2017-08-06] MEDS: Sennosides 8.6mg ORAL SCH (20:44)
[2017-08-06] MEDS: Tamsulosin 0.4mg cap ORAL SCH (20:44)
[2017-08-06] MEDS: Atorvastatin 80mg tab ORAL SCH (20:44)
--- NOTE | 2017-08-06 23:15 | Consultation ---
DATE OF CONSULTATION: 08/06/2017 INFECTIOUS DISEASES CONSULTATION ATTENDING PHYSICIAN: Srinivas Perales M.D. REFERRING PHYSICIAN: Darshana Bonilla M.D. REASON FOR CONSULTATION: ESBL E. coli UTI. CHIEF COMPLAINT: The patient's chief complaint coming into the hospital is failure to thrive. Also, the patient comes in because of poor oral intake, nausea, vomiting, and cough. HISTORY OF PRESENT ILLNESS: The patient is a very pleasant 77-year-old male, comes in with poor oral intake. The patient was noted to have a positive urinalysis with 3+ leukocyte esterase and too many to count white blood cells. Urine culture grew out ESBL E. coli. Infectious Diseases consultation was requested for antibiotic management. The patient was on cefepime, was switched to meropenem. Meropenem was adjusted for elevated cr to 1gm gram q.12 h. Other workup showed the patient had pulmonary embolism. Sputum culture is pending. CT scan of the chest again was consistent with pulmonary embolism. There is no obvious pneumonia. MAR was noted. Orders were noted. Notes were reviewed. Case was discussed with RN. PAST MEDICAL HISTORY: The patient has past medical history of hypertension. The patient history of chronic kidney disease stage 3, diabetes, he has a history of neuropathy, GERD, L4-L5 spinal stenosis, BPH, osteoarthritis, and depression. The patient also is anemic. He has history of gallstones noted. Workup showed a pulmonary embolism, DVT, cholelithiasis and morbid obesity. Please see past medical history in medical order. MEDICATIONS: Upon reviewing the MAR, he is on following medications, on meropenem, heparin, Senokot, Reglan. sub q heparin, atenolol, gabapentin, finasteride, multivitamins, docusate, folic acid, Lipitor, Flomax, Restoril, NovoLog, insulin, nitroglycerin, albuterol, Tylenol, MiraLAX and Zofran. Outside medications were noted and reconciliated. ALLERGIES: No known drug allergies. No antibiotic allergies. SOCIAL HISTORY: Negative for smoking, alcohol, or drug abuse. FAMILY HISTORY: Noncontributory. Negative for exposure to tuberculosis or cancer. REVIEW OF SYSTEMS: CONSTITUTIONAL: The patient has generalized weakness, fatigue, and poor oral intake. He had cough. He has failure to thrive. The patient denies any fever, chills, or night sweats. He also had a history of weight loss. HEAD AND NECK: No thrush. No dysphagia. No sinus tenderness. No neck stiffness. No change in vision. CARDIAC: No chest pain or palpitations. GASTROINTESTINAL: He did have nausea and vomiting. Some abdominal discomfort. GENITOURINARY: He has no Ceron. He has some dysuria and frequency. No CVA tenderness. PULMONARY: He has cough. No significant hemoptysis or secretions. Very mild sputum production. SKIN: No rash or itching. EXTREMITIES: No extremity pain. NEUROLOGIC: No seizures. PHYSICAL EXAMINATION: VITAL SIGNS: Temperature is 97.6 degrees, pulse rate 88, respiratory rate 20, blood pressure sys over 100/50 and saturation 95% on room air. GENERAL: Alert, responsive, no acute distress. HEAD AND NECK: Oral exam, no thrush. Eye exam, no icterus. Normocephalic. No facial droop. No neck stiffness. Neck is supple. HEART: Regular. No gallop or murmur. LUNGS: Clear bilaterally. No obvious rhonchi or rales. ABDOMEN: Soft. Positive bowel sounds. Nontender. SKIN: No rash. MUSCULOSKELETAL: No effusion. Legs are without cellulitis. PERIPHERAL VASCULAR: No cyanosis or gangrene. RECTAL: Deferred. GENITOURINARY: The patient has no Ceron. No CVA tenderness. LINES: Line sites without phlebitis. NEUROLOGIC: Generalized weakness and responsive. LABORATORY AND DIAGNOSTIC DATA: ESR is 28. Creatinine is 1.3. White count 6.5 and hemoglobin 12.1. UA had 3+ leukocyte esterase, too many to count white blood cells. Cultures, sputum culture is pending. Blood culture is negative. Urine culture grew out ESBL E. coli. Imaging studies are as follows, the patient has ultrasound, which showed cholelithiasis. HIDA scan was negative. CT scan of the abdomen and pelvis showed cholelithiasis. CT scan of the chest showed pulmonary embolism, showed nodules. No mention of pneumonia. Chest x-ray showed no pneumonia, no acute disease. ASSESSMENT AND PLAN: 1. The patient has extended spectrum beta-lactamases Escherichia coli urinary tract infection. The patient has significantly positive urinalysis. Based on urinalysis, I would continue meropenem for a total of 10 days. The patient currently is on meropenem 1 gram IV q.12 h. If less frequency dosing is needed, we can give Invanz 1 gram q.24 h. Again, antibiotics should to be a total 10 days. 2. Pulmonary embolism. 3. Deep vein thrombosis. 4. Anemia. 5. Chronic kidney disease. 6. Watch creatinine closely. 7. Diabetes. 8. hyperlipidemia 9. Neuropathy. 10. Gastroesophageal reflux disease. 11. L4-L5 spinal stenosis. 12. Benign prostatic hypertrophy. 13. Osteoarthritis. 14. Depression. 15. Past medical history noted. 16. Allergies are negative. 17. Social history negative. 18. Family History noncontributory. 19. MAR was noted. 20. Case discussed with RN. 21. Continue treatment per primary consultants. 22. Continue anticoagulant for pulmonary embolism and deep vein thrombosis. 23. Skin care protocol. 24. Notes and records were noted. 25. Orders were entered. Stephanie Queen M.D. DR: MARIKA JOB#: [id number] CC: ROJAS
[2017-08-07] VITALS: BP 95/51
[2017-08-07] MEDS: Meropenem 1gm/NS 110ml IVPB SCH ×4 (02:18→14:00)
[2017-08-07] MEDS: NS w/KCl 20mEq 1,000 ML IV SCH (02:29)
[2017-08-07 04:00] VITALS: BP 110/57
[2017-08-07 04:51] LABS: BASOPHILS % (AUTO) 0.9 % (0.0-2.0); EOSINOPHILS % (AUTO) 3.3 % (0.0-3.0); HEMATOCRIT 34.7 % (42.0-52.0); HEMOGLOBIN 11.6 G/DL (14.2-18.0); LYMPHOCYTES % (AUTO) 17.8 % (20.0-45.0); MEAN CORPUSCULAR VOLUME 86 FL (80-99); MONOCYTES % (AUTO) 12.1 % (1.0-10.0); PLATELET COUNT 168 K/UL (150-450); RED BLOOD COUNT 4.03 M/UL (4.70-6.10); RED CELL DISTRIBUTION WIDTH 14.4 % (11.6-14.8); WHITE BLOOD COUNT 4.5 K/UL (4.8-10.8)
[2017-08-07 05:06] LABS: INR 1.1 (0.9-1.1)
[2017-08-07 05:07] LABS: ALANINE AMINOTRANSFERASE 38 U/L (12-78); ALBUMIN 2.6 G/DL (3.4-5.0); ALBUMIN/GLOBULIN RATIO 0.7 (1.0-2.7); ALKALINE PHOSPHATASE 78 U/L (46-116); ANION GAP 7 mmol/L (5-15); ASPARTATE AMINO TRANSFERASE 34 U/L (15-37); BILIRUBIN,TOTAL 0.9 MG/DL (0.2-1.0); BLOOD UREA NITROGEN 18 mg/dL (7-18); CALCIUM 8.6 MG/DL (8.5-10.1); CARBON DIOXIDE 26 MMOL/L (21-32); CHLORIDE 103 MMOL/L (98-107); CREATININE 1.2 MG/DL (0.55-1.30); PHOSPHORUS 2.8 MG/DL (2.5-4.9); POTASSIUM 4.1 MMOL/L (3.5-5.1); SODIUM 136 MMOL/L (136-145)
[2017-08-07] MEDS: NovoLOG Insulin Flexpen SUBQ SCH ×2 (06:29→12:50)
--- NOTE | 2017-08-07 07:07 | General Progress Note ---
Assessment/Plan Problem List: (1) Acute deep vein thrombosis (DVT) of both lower extremities ICD Codes: I82.403 - Acute embolism and thrombosis of unspecified deep veins of lower extremity, bilateral SNOMED: 314280461939 (2) Pulmonary embolism ICD Codes: I26.99 - Other pulmonary embolism without acute cor pulmonale SNOMED: 81098417 (3) Cholelithiasis ICD Codes: K80.20 - Calculus of gallbladder without cholecystitis without obstruction SNOMED: 968245585 Qualifiers: (4) CKD (chronic kidney disease), stage III ICD Codes: N18.3 - Chronic kidney disease, stage 3 (moderate) SNOMED: 051828644 (5) Morbid obesity ICD Codes: E66.01 - Morbid (severe) obesity due to excess calories SNOMED: 827521328, 83458921309384 (6) HTN (hypertension) ICD Codes: I10 - Essential (primary) hypertension SNOMED: 07556802 (7) Lumbar spinal stenosis ICD Codes: M48.061 - Spinal stenosis, lumbar region without neurogenic claudication SNOMED: 35316675 (8) Osteoarthritis ICD Codes: M19.90 - Unspecified osteoarthritis, unspecified site SNOMED: 810085606 (9) GERD (gastroesophageal reflux disease) ICD Codes: K21.9 - Gastro-esophageal reflux disease without esophagitis SNOMED: 399920521 (10) BPH (benign prostatic hyperplasia) ICD Codes: N40.0 - Benign prostatic hyperplasia without lower urinary tract symptoms SNOMED: 157097441 (11) UTI (urinary tract infection) Assessment & Plan: 2/2 ESBL E. Coli ICD Codes: N39.0 - Urinary tract infection, site not specified SNOMED: 46697913 (12) Failure to thrive SNOMED: 31321773 (13) Weight loss ICD Codes: R63.4 - Abnormal weight loss SNOMED: 71744268, 868874782 (14) Chronic diastolic (congestive) heart failure ICD Codes: I50.32 - Chronic diastolic (congestive) heart failure SNOMED: 80962897, 810314043 (15) Hypokalemia ICD Codes: E87.6 - Hypokalemia SNOMED: 60008467 (16) Hypomagnesemia ICD Codes: E83.42 - Hypomagnesemia SNOMED: 350528153 Status: stable Assessment/Plan Surgery consulted given CT a/p findings of distended gallbladder HIDA scan wnl. Lap cholecystectomy not indicated at this time Pulm consulted Cont on heparin gtt given PE and b/l DVT--likely transition to NOAC on discharge TTE shows EF 60-65%, diastolic dysfcn ID consulted Abx changed to meropenem as urine culture showing ESBL E. Coli (08/06-) s/p vanco and cefepime F/u cultures--urine cx showing ESBL Trend CBC Trend BMP IVFs Nutrional eval Zofran PRN Pain control, bowel regimen Supportive care Cont SNF meds: ASA, atenolol, statin, flomax, finasteride BASSAM PT/OT eval Possible d/c tomorrow back to SNF DVT Prophylaxis: HSQ Code Status: Full Hospital Classification Declaration: Based on this initial evaluation, and depending on the patient's clinical course, I anticipate that this patient will require hospitalization for 1-2 days for failure to thrive, cholelithiasis, acute DVT and PE, and close respiratory/hemodynamic monitoring. Disposition: Once the patient is stable to leave the hospital, I anticipate the patient will likely be discharged to the following environment: back to SNF Discussed with patient/family, nursing staff, SW/CM, pulm, surgery regarding clinical status, treatment course, and disposition planning. D/w surgery re HIDA scan result. D/w pulm re anticoag Time of note may not reflect time of encounter. Subjective Date patient seen: Aug 06, 2017 Time patient seen: 14:00 ROS Limited/Unobtainable: No Constitutional: Reports: malaise HEENT: Reports: no symptoms Cardiovascular: Reports: no symptoms Respiratory: Reports: no symptoms Gastrointestinal/Abdominal: Reports: nausea, poor appetite Neurologic/Psychiatric: Reports: no symptoms Endocrine: Reports: no symptoms Hematologic/Lymphatic: Reports: no symptoms Allergies: Coded Allergies: No Known Allergies (Unverified , 08/04/17) All Systems: reviewed and negative except above Subjective No acute o/n events HIDA scan neg. D/w surgery and lap nancy not indicated at this time. Pt also w/ DVT and PE and therefore risks of proceeding outweigh benefits at this time Nausea better w/ meds. Appetite slightly better. Denies pain, f/c, n/v, d/c, chest pain, SOB Objective Last 24 Hour Vital Signs Date Time Temp Pulse Resp B/P (MAP) Pulse Ox O2 Delivery O2 Flow Rate FiO2 08/07/17 04:00 97.7 91 20 110/57 91 Room Air 08/07/17 03:52 88 08/07/17 00:17 88 08/07/17 00:00 97.5 88 20 95/51 92 Room Air 08/06/17 20:00 88 08/06/17 20:00 98.1 89 20 108/58 93 Room Air 08/06/17 19:50 86 16 Room Air 08/06/17 16:00 88 08/06/17 16:00 97.6 88 20 93/56 95 Room Air 08/06/17 13:00 97.2 88 18 99/51 93 Room Air 08/06/17 12:00 81 08/06/17 09:00 80 97/58 08/06/17 08:55 80 97/58 08/06/17 08:15 75 16 Room Air 21 08/06/17 08:00 97.0 80 18 95/61 94 Room Air 08/06/17 08:00 80 Intake and Output 08/06/17 08/07/17 19:00 07:00 Intake Total 1137.240 ml 1266.455 ml Output Total 150 ml 0 ml Balance 987.240 ml 1266.455 ml Intake Oral 500 ml IV Total 637.240 ml 1266.455 ml Output Urine Total 150 ml 0 ml # Voids 2 # Bowel Movements 1 Laboratory Tests 08/06/17 18:35: Activated Partial Thromboplast Time 94H 08/07/17 03:45: Activated Partial Thromboplast Time 67H, White Blood Count 4.5L, Red Blood Count 4.03L, Hemoglobin 11.6L, Hematocrit 34.7L, Mean Corpuscular Volume 86, Mean Corpuscular Hemoglobin 28.8, Mean Corpuscular Hemoglobin Concent 33.3, Red Cell Distribution Width 14.4, Platelet Count 168, Mean Platelet Volume 7.3, Neutrophils (%) (Auto) 66.0, Lymphocytes (%) (Auto) 17.8L, Monocytes (%) (Auto) 12.1H, Eosinophils (%) (Auto) 3.3H, Basophils (%) (Auto) 0.9, Prothrombin Time 11.1, Prothromb Time International Ratio 1.1, Sodium Level 136, Potassium Level 4.1, Chloride Level 103, Carbon Dioxide Level 26, Anion Gap 7, Blood Urea Nitrogen 18, Creatinine 1.2, Estimat Glomerular Filtration Rate , Glucose Level 127H, Calcium Level 8.6, Phosphorus Level 2.8, Magnesium Level 1.4L, Total Bilirubin 0.9, Aspartate Amino Transf (AST/SGOT) 34, Alanine Aminotransferase ( ALT/SGPT) 38, Alkaline Phosphatase 78, Total Protein 6.5, Albumin 2.6L, Globulin 3.9, Albumin/Globulin Ratio 0.7L Height (Feet): 5 Height (Inches): 9.00 Weight (Pounds): 268 Objective General: alert, cooperative, no distress, appears stated age Head: normocephalic, without obvious abnormality, atraumatic Eyes: conjunctivae/corneas clear. PERRL, EOM's intact Throat: lips, mucosa, and tongue normal. MMM Neck: supple, symmetrical, trachea midline, and no JVD Lungs: clear to auscultation bilaterally Heart: regular rate and rhythm, S1, S2 normal, no murmur, click, rub or gallop Abdomen: soft, non-tender, non-distended, bowel sounds normal; no masses or organomegaly Extremities: extremities normal, atraumatic, no cyanosis or edema Pulses: 2+ and symmetric Skin: skin color, texture, turgor normal; no rashes or lesions Neurologic: grossly normal, no focal deficits Darshana Bonilla M.D. Aug 07, 2017 07:07
[2017-08-07] MEDS ORDERED: REGLAN10 MG ORAL (07:12)
[2017-08-07] MEDS ORDERED: FOLIC ACID1 MG ORAL (07:12)
[2017-08-07] MEDS ORDERED: INVANZ1 GM IVPB (07:12)
[2017-08-07] MEDS ORDERED: ELIQUIS5 MG PO (07:13)
[2017-08-07 08:00] VITALS: BP 120/71
[2017-08-07] MEDS ORDERED: Eliquis 2.5mg tablet ORAL SCH (09:00)
[2017-08-07] MEDS: Multivitamin w/Minerals tab ORAL SCH (09:08)
[2017-08-07] MEDS: Docusate 100mg cap ORAL SCH (09:08)
[2017-08-07 12:00] VITALS: BP 95/53
[2017-08-07] MEDS ORDERED: LEVOFLOXACIN500 MG ORAL (12:35)
--- NOTE | 2017-08-07 12:36 | Pulmonology Progress Note ---
Assessment/Plan Problems: (1) Pulmonary embolism (2) DVT (deep venous thrombosis) (3) Sepsis (4) Morbid obesity (5) Chronic renal insufficiency Assessment/Plan still coughing Echo reviewed, EF of 60% on heparin drip HIDA scan in process f/u urine culture results give a few days of po Levofloxacin for purulent abx pt/ot Subjective ROS Limited/Unobtainable: No Interval Events: still coughing Allergies: Coded Allergies: No Known Allergies (Unverified , 08/04/17) Objective Last 24 Hour Vital Signs Date Time Temp Pulse Resp B/P (MAP) Pulse Ox O2 Delivery O2 Flow Rate FiO2 08/07/17 09:08 89 120/71 08/07/17 04:00 97.7 91 20 110/57 91 Room Air 08/07/17 03:52 88 08/07/17 00:17 88 08/07/17 00:00 97.5 88 20 95/51 92 Room Air 08/06/17 20:00 88 08/06/17 20:00 98.1 89 20 108/58 93 Room Air 08/06/17 19:50 86 16 Room Air 08/06/17 16:00 88 08/06/17 16:00 97.6 88 20 93/56 95 Room Air 08/06/17 13:00 97.2 88 18 99/51 93 Room Air Intake and Output 08/06/17 08/07/17 19:00 07:00 Intake Total 1137.240 ml 1266.455 ml Output Total 150 ml 0 ml Balance 987.240 ml 1266.455 ml Intake Oral 500 ml IV Total 637.240 ml 1266.455 ml Output Urine Total 150 ml 0 ml # Voids 2 # Bowel Movements 1 HEENT: normocephalic, anicteric Respiratory/Chest: chest wall non-tender, normal breath sounds Cardiovascular: normal peripheral pulses, normal rate Abdomen: normal bowel sounds, soft, non tender Extremities: no cyanosis Skin: no rash Neurologic/Psychiatric: 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 Complete 08/04/17 20:00 Nasal Nares Influenza Types A,B Antigen (ANN) - Final Complete 08/05/17 15:35 Urine,Clean Catch Urine Culture - Preliminary Gram Negative Bacillus 1 Resulted 08/04/17 17:25 Urine,Clean Catch Urine Culture - Final Escherichia Coli - Esbl Complete 08/04/17 20:00 Rectal Mucosa VRE Culture - Final NO VANCOMYCIN RESISTANT ENTEROCOCCUS ... Complete Laboratory Tests 08/06/17 18:35: Activated Partial Thromboplast Time 94H 08/07/17 03:45: Activated Partial Thromboplast Time 67H, White Blood Count 4.5L, Red Blood Count 4.03L, Hemoglobin 11.6L, Hematocrit 34.7L, Mean Corpuscular Volume 86, Mean Corpuscular Hemoglobin 28.8, Mean Corpuscular Hemoglobin Concent 33.3, Red Cell Distribution Width 14.4, Platelet Count 168, Mean Platelet Volume 7.3, Neutrophils (%) (Auto) 66.0, Lymphocytes (%) (Auto) 17.8L, Monocytes (%) (Auto) 12.1H, Eosinophils (%) (Auto) 3.3H, Basophils (%) (Auto) 0.9, Prothrombin Time 11.1, Prothromb Time International Ratio 1.1, Sodium Level 136, Potassium Level 4.1, Chloride Level 103, Carbon Dioxide Level 26, Anion Gap 7, Blood Urea Nitrogen 18, Creatinine 1.2, Estimat Glomerular Filtration Rate , Glucose Level 127H, Calcium Level 8.6, Phosphorus Level 2.8, Magnesium Level 1.4L, Total Bilirubin 0.9, Aspartate Amino Transf (AST/SGOT) 34, Alanine Aminotransferase ( ALT/SGPT) 38, Alkaline Phosphatase 78, Total Protein 6.5, Albumin 2.6L, Globulin 3.9, Albumin/Globulin Ratio 0.7L 08/07/17 11:30: Activated Partial Thromboplast Time 34H Current Medications Medications (Trade) Dose Ordered Sig/Faizan Route PRN Reason Start Time Stop Time Status Last Admin Dose Admin Acetaminophen (Tylenol) 650 mg Q4H PRN ORAL T>100.5 08/04/17 18:15 09/03/17 18:14 Albuterol/ Ipratropium (Albuterol/ Ipratropium) 3 ml Q4H PRN HHN Shortness of Breath 08/04/17 18:15 08/09/17 18:14 Apixaban (Eliquis) 5 mg BID ORAL 08/07/17 09:00 09/06/17 08:59 08/07/17 09:07 Atenolol (Tenormin) 50 mg DAILY ORAL 08/05/17 09:00 09/04/17 08:59 08/07/17 09:08 Atorvastatin Calcium (Lipitor) 80 mg BEDTIME ORAL 08/04/17 21:00 09/03/17 20:59 08/06/17 20:44 Dextrose (Dextrose 50%) STAT PRN IV Hypoglycemia 08/04/17 18:15 09/03/17 18:14 Docusate Sodium (Colace) 100 mg TWICE A DAY ORAL 08/05/17 09:00 09/04/17 08:59 08/07/17 09:08 Finasteride (Proscar) 5 mg DAILY ORAL 08/05/17 09:00 09/04/17 08:59 08/07/17 09:07 Folic Acid (Folate) 1 mg DAILY ORAL 08/05/17 09:00 09/04/17 08:59 08/07/17 09:08 Gabapentin (Neurontin) 400 mg THREE TIMES A DAY ORAL 08/05/17 09:00 09/04/17 08:59 08/07/17 09:09 Insulin Aspart (NovoLOG) BEFORE MEALS AND HS SUBQ 08/04/17 21:00 09/03/17 20:59 08/07/17 06:29 Meropenem 1 gm/ Sodium Chloride 110 ml @ 220 mls/hr Q12H IVPB 08/06/17 14:00 08/11/17 13:59 08/07/17 02:18 Metoclopramide HCl (Reglan) 10 mg AC+HS ORAL 08/05/17 16:30 09/04/17 16:29 08/07/17 06:26 Morphine Sulfate (Morphine Sulfate) 2 mg Q4H PRN IVP Severe Pain (Pain Scale 7-10) 08/04/17 18:15 08/11/17 18:14 08/06/17 13:02 Multivitamins Therapeutic (Therapeutic Multivitamin) 1 ea DAILY ORAL 08/05/17 09:00 09/04/17 08:59 08/07/17 09:08 Nitroglycerin (Ntg) 0.4 mg Q5MIN X 3 DOSES PRN SL Prn Chest Pain 08/04/17 18:30 09/03/17 18:29 Ondansetron HCl (Zofran) 4 mg Q6H PRN IVP Nausea & Vomiting 08/04/17 18:15 09/03/17 18:14 08/05/17 09:35 Oxycodone/ Acetaminophen (Percocet 5-325) 1 tab Q4H PRN ORAL Moderate Pain (Pain Scale 4-6) 08/04/17 18:15 08/11/17 18:14 Polyethylene Glycol (Miralax) 17 gm DAILYPRN PRN ORAL Constipation 08/04/17 18:15 09/03/17 18:14 Sennosides (Senokot) 2 tab QHS ORAL 08/05/17 21:00 09/04/17 20:59 08/06/17 20:44 Tamsulosin HCl (Flomax) 0.4 mg BEDTIME ORAL 08/04/17 21:00 09/03/17 20:59 08/06/17 20:44 Temazepam (Restoril) 15 mg HSPRN PRN ORAL Insomnia 08/04/17 21:00 08/11/17 20:59 YASMIN MERCADO Aug 07, 2017 12:36
[2017-08-07] MEDS ORDERED: Levofloxacin 500mg tab ORAL ONE (12:45)
--- NOTE | 2017-08-07 13:24 | Urology Progress Note ---
Assessment/Plan Assessment/Plan BPH/LUTS hx probable neurogenic bladder renal cyst hydrocele/spermatocele UTI hematuria proteinuria flomax and proscar s/p course of abx pt going back to SNF today outpt f/u for cysto and recheck UA d/w Dr. Bonilla thanks, Subjective Allergies: Coded Allergies: No Known Allergies (Unverified , 08/04/17) Subjective all noted, initial evaluation, pt well known to me, BPH hx, LUTS, ED, CRI, hydrocele/spermatocele hx, chronic prostatitis admitted with cough, poor appetite voiding fair PMH/chart all noted Objective Last 24 Hour Vital Signs Date Time Temp Pulse Resp B/P (MAP) Pulse Ox O2 Delivery O2 Flow Rate FiO2 08/07/17 09:08 89 120/71 08/07/17 04:00 97.7 91 20 110/57 91 Room Air 08/07/17 03:52 88 08/07/17 00:17 88 08/07/17 00:00 97.5 88 20 95/51 92 Room Air 08/06/17 20:00 88 08/06/17 20:00 98.1 89 20 108/58 93 Room Air 08/06/17 19:50 86 16 Room Air 08/06/17 16:00 88 08/06/17 16:00 97.6 88 20 93/56 95 Room Air Intake and Output 08/06/17 08/07/17 19:00 07:00 Intake Total 1137.240 ml 1266.455 ml Output Total 150 ml 0 ml Balance 987.240 ml 1266.455 ml Intake Oral 500 ml IV Total 637.240 ml 1266.455 ml Output Urine Total 150 ml 0 ml # Voids 2 # Bowel Movements 1 Microbiology Date/Time Source Procedure Growth Status 08/04/17 17:10 Blood Blood Culture - Preliminary NO GROWTH AFTER 48 HOURS Resulted 08/05/17 01:40 Sputum Gram Stain - Final Resulted 08/05/17 01:40 Sputum Culture - Preliminary Staphylococcus Aureus Usual Upper Respiratory Abby Resulted 08/05/17 15:35 Urine,Clean Catch Urine Culture - Preliminary Gram Negative Bacillus 1 Resulted 08/04/17 20:00 Rectal Mucosa VRE Culture - Final NO VANCOMYCIN RESISTANT ENTEROCOCCUS ... Complete Current Medications Medications (Trade) Dose Ordered Sig/Faizan Route PRN Reason Start Time Stop Time Status Last Admin Dose Admin Acetaminophen (Tylenol) 650 mg Q4H PRN ORAL T>100.5 08/04/17 18:15 09/03/17 18:14 Albuterol/ Ipratropium (Albuterol/ Ipratropium) 3 ml Q4H PRN HHN Shortness of Breath 08/04/17 18:15 08/09/17 18:14 Apixaban (Eliquis) 5 mg BID ORAL 08/07/17 09:00 09/06/17 08:59 08/07/17 09:07 Atenolol (Tenormin) 50 mg DAILY ORAL 08/05/17 09:00 09/04/17 08:59 08/07/17 09:08 Atorvastatin Calcium (Lipitor) 80 mg BEDTIME ORAL 08/04/17 21:00 09/03/17 20:59 08/06/17 20:44 Dextrose (Dextrose 50%) STAT PRN IV Hypoglycemia 08/04/17 18:15 09/03/17 18:14 Docusate Sodium (Colace) 100 mg TWICE A DAY ORAL 08/05/17 09:00 09/04/17 08:59 08/07/17 09:08 Finasteride (Proscar) 5 mg DAILY ORAL 08/05/17 09:00 09/04/17 08:59 08/07/17 09:07 Folic Acid (Folate) 1 mg DAILY ORAL 08/05/17 09:00 09/04/17 08:59 08/07/17 09:08 Gabapentin (Neurontin) 400 mg THREE TIMES A DAY ORAL 08/05/17 09:00 09/04/17 08:59 08/07/17 12:51 Insulin Aspart (NovoLOG) BEFORE MEALS AND HS SUBQ 08/04/17 21:00 09/03/17 20:59 08/07/17 12:50 Meropenem 1 gm/ Sodium Chloride 110 ml @ 220 mls/hr Q12H IVPB 08/06/17 14:00 08/11/17 13:59 08/07/17 02:18 Metoclopramide HCl (Reglan) 10 mg AC+HS ORAL 08/05/17 16:30 09/04/17 16:29 08/07/17 11:30 Morphine Sulfate (Morphine Sulfate) 2 mg Q4H PRN IVP Severe Pain (Pain Scale 7-10) 08/04/17 18:15 08/11/17 18:14 08/06/17 13:02 Multivitamins Therapeutic (Therapeutic Multivitamin) 1 ea DAILY ORAL 08/05/17 09:00 09/04/17 08:59 08/07/17 09:08 Nitroglycerin (Ntg) 0.4 mg Q5MIN X 3 DOSES PRN SL Prn Chest Pain 08/04/17 18:30 09/03/17 18:29 Ondansetron HCl (Zofran) 4 mg Q6H PRN IVP Nausea & Vomiting 08/04/17 18:15 09/03/17 18:14 08/05/17 09:35 Oxycodone/ Acetaminophen (Percocet 5-325) 1 tab Q4H PRN ORAL Moderate Pain (Pain Scale 4-6) 08/04/17 18:15 08/11/17 18:14 Polyethylene Glycol (Miralax) 17 gm DAILYPRN PRN ORAL Constipation 08/04/17 18:15 09/03/17 18:14 Sennosides (Senokot) 2 tab QHS ORAL 08/05/17 21:00 09/04/17 20:59 08/06/17 20:44 Tamsulosin HCl (Flomax) 0.4 mg BEDTIME ORAL 08/04/17 21:00 09/03/17 20:59 08/06/17 20:44 Temazepam (Restoril) 15 mg HSPRN PRN ORAL Insomnia 08/04/17 21:00 08/11/17 20:59 Laboratory Tests 08/06/17 18:35: Activated Partial Thromboplast Time 94H 08/07/17 03:45: Activated Partial Thromboplast Time 67H, White Blood Count 4.5L, Red Blood Count 4.03L, Hemoglobin 11.6L, Hematocrit 34.7L, Mean Corpuscular Volume 86, Mean Corpuscular Hemoglobin 28.8, Mean Corpuscular Hemoglobin Concent 33.3, Red Cell Distribution Width 14.4, Platelet Count 168, Mean Platelet Volume 7.3, Neutrophils (%) (Auto) 66.0, Lymphocytes (%) (Auto) 17.8L, Monocytes (%) (Auto) 12.1H, Eosinophils (%) (Auto) 3.3H, Basophils (%) (Auto) 0.9, Prothrombin Time 11.1, Prothromb Time International Ratio 1.1, Sodium Level 136, Potassium Level 4.1, Chloride Level 103, Carbon Dioxide Level 26, Anion Gap 7, Blood Urea Nitrogen 18, Creatinine 1.2, Estimat Glomerular Filtration Rate , Glucose Level 127H, Calcium Level 8.6, Phosphorus Level 2.8, Magnesium Level 1.4L, Total Bilirubin 0.9, Aspartate Amino Transf (AST/SGOT) 34, Alanine Aminotransferase ( ALT/SGPT) 38, Alkaline Phosphatase 78, Total Protein 6.5, Albumin 2.6L, Globulin 3.9, Albumin/Globulin Ratio 0.7L 08/07/17 11:30: Activated Partial Thromboplast Time 34H Height (Feet): 5 Height (Inches): 9.00 Weight (Pounds): 268 Objective abdomen soft, no CVAT, exam stable recent UA and urine cx noted recent imaging including CT and abdominal u/s noted KHALIF SPENCE Aug 07, 2017 13:24
[2017-08-07] MEDS ORDERED: Tubing IV Secondary IV ONE (14:39)
--- NOTE | 2017-08-07 14:56 | Discharge Summary ---
Discharge Summary Hospital Course Date of Admission Aug 04, 2017 at 17:20 Date of Discharge 08/07/17 Admitting Diagnosis failure to thrive Reason for Hospitalization: acute PE, b/l DVT, failure to thrive HPI 77y/o male with pmh of HTN, CKD stage 3, DM2 (A1C 7.2) c/b neuropathy, GERD, L4- 5 spinal stenosis, BPH, osteoarthritis, depressionwho presents with persistent cough, nausea and poor PO intake. Pt states he has had poor PO intake for abt 2 months. States lately has not taken in much PO at all 2/2 nausea. Denies recent emesis. C/o persistent cough w/ minimal sputum for the past few weeks. Occ mild abd discomfort, but not currently. Denies f/c, d/c, chest pain, SOB, dysuria. Has chronic lower back pain which is stable. Has not been ambulating much at SNF. Notes ~30lb weight loss. In ED, pt had CT chest/abd/pelvis which showed distended gallbladder likely 2/2 cholelithiasis, small to moderate PE. Surgery consulted. Consultations Pulmonology, Infectious disease, Surgery Hospital Course Pt was admitted and seen by pulm, ID and surgery. Pt was found to have acute PE and acute b/l DVT. He was started on heparin gtt. TTE showed EF 60-65%. Pt also found to have ESBL E. Coli UTI. HIDA scan was unremarkable. Per surgery, no indication for lap cholecystectomy at this time. Pt was transitioned to eliquis for DVT/PE prior to d/c. Pt symptomatically improved prior to d/c. Discharge physical exam General: alert, cooperative, no distress, appears stated age Head: normocephalic, without obvious abnormality, atraumatic Eyes: conjunctivae/corneas clear. PERRL, EOM's intact Throat: lips, mucosa, and tongue normal. MMM Neck: supple, symmetrical, trachea midline, and no JVD Lungs: clear to auscultation bilaterally Heart: regular rate and rhythm, S1, S2 normal, no murmur, click, rub or gallop Abdomen: soft, non-tender, non-distended, bowel sounds normal Extremities: extremities normal, atraumatic, no cyanosis or edema Pulses: 2+ and symmetric Skin: skin color, texture, turgor normal; no rashes or lesions Neurologic: grossly normal, no focal deficits Discharge diagnoses: (1) Acute deep vein thrombosis (DVT) of both lower extremities ICD Codes: I82.403 - Acute embolism and thrombosis of unspecified deep veins of lower extremity, bilateral SNOMED: 872608898314 (2) Pulmonary embolism ICD Codes: I26.99 - Other pulmonary embolism without acute cor pulmonale SNOMED: 28915904 (3) Cholelithiasis ICD Codes: K80.20 - Calculus of gallbladder without cholecystitis without obstruction SNOMED: 525034641 (4) CKD (chronic kidney disease), stage III ICD Codes: N18.3 - Chronic kidney disease, stage 3 (moderate) SNOMED: 529837843 (5) Morbid obesity ICD Codes: E66.01 - Morbid (severe) obesity due to excess calories SNOMED: 232407942, 90602193345265 (6) HTN (hypertension) ICD Codes: I10 - Essential (primary) hypertension SNOMED: 01618994 (7) Lumbar spinal stenosis ICD Codes: M48.061 - Spinal stenosis, lumbar region without neurogenic claudication SNOMED: 27841600 (8) Osteoarthritis ICD Codes: M19.90 - Unspecified osteoarthritis, unspecified site SNOMED: 859833830 (9) GERD (gastroesophageal reflux disease) ICD Codes: K21.9 - Gastro-esophageal reflux disease without esophagitis SNOMED: 959129905 (10) BPH (benign prostatic hyperplasia) ICD Codes: N40.0 - Benign prostatic hyperplasia without lower urinary tract symptoms SNOMED: 639635493 (11) UTI (urinary tract infection) Assessment & Plan: 2/2 ESBL E. Coli ICD Codes: N39.0 - Urinary tract infection, site not specified SNOMED: 18172195 (12) Failure to thrive SNOMED: 08489016 (13) Weight loss ICD Codes: R63.4 - Abnormal weight loss SNOMED: 62434675, 478158131 (14) Chronic diastolic (congestive) heart failure ICD Codes: I50.32 - Chronic diastolic (congestive) heart failure SNOMED: 48934525, 765104847 (15) Hypokalemia ICD Codes: E87.6 - Hypokalemia SNOMED: 26296964 (16) Hypomagnesemia ICD Codes: E83.42 - Hypomagnesemia Discharge Medications New Medications: Apixaban (Eliquis) 5 Mg Tablet 5 MG PO BID for 90 Days, TAB Ertapenem Sodium* (INVanz*) 1 Gm Vial.port 1 GM IVPB Q24H for 7 Days, VIAL Levofloxacin (Levofloxacin*) 500 Mg Tablet 500 MG ORAL DAILY for 5 Days, TAB Folic Acid* (Folic Acid*) 1 Mg Tablet 1 MG ORAL DAILY for 90 Days, TAB Metoclopramide Hcl* (Reglan*) 10 Mg Tablet 10 MG ORAL BEFORE MEALS for 7 Days, #21 TAB Continued Medications: Acarbose* (Precose*) 50 Mg Tablet 100 MG ORAL THREE TIMES A DAY, TAB 0 Refills Acetaminophen (Acetaminophen) 650 Mg/20.3 Ml Solution 650 MG ORAL Q6H PRN for Prn Headache/Temp > 101, ML 0 Refills Atenolol* (Tenormin*) 50 Mg Tablet 50 MG ORAL DAILY, TAB Atorvastatin Calcium* (Atorvastatin Calcium*) 40 Mg Tablet 80 MG ORAL BEDTIME, TAB Cyclobenzaprine Hcl* (Flexeril*) 10 Mg Tablet 10 MG ORAL THREE TIMES A DAY, TAB Docusate Sodium* (Colace*) 100 Mg Capsule 100 MG ORAL DAILY, CAP Finasteride* (Proscar*) 5 Mg Tablet 5 MG ORAL DAILY, #30 TAB 0 Refills Gabapentin* (Gabapentin*) 400 Mg Capsule 400 MG ORAL THREE TIMES A DAY, CAP 0 Refills Insulin Glargine (Lantus) 100 Unit/1 Ml Vial 0 SUBQ BEDTIME, #1 EA 0 Refills Insulin Lispro (Humalog) 100 Unit/1 Ml Cartridge 0 SUBQ for Sliding Scale, #1 UNITS 0 Refills Magnesium Hydroxide* (Milk Of Magnesia*) 400 Mg/5 Ml Oral.susp 30 ML ORAL DAILY, ML Multivitamin With Minerals (Multivitamins With Minerals*) 1 Each Tablet 1 TAB ORAL DAILY, TAB Oxycodone Hcl/Acetaminophen 5-325* (Oxycodone-Acetaminophen 5-325*) 1 Each Tablet 1 TAB ORAL Q4H PRN for For Pain, TAB 0 Refills Sennosides (Senokot) 8.6 Mg Tablet 8.6 MG PO, TAB Sitagliptin* (Januvia*) 25 Mg Tablet 100 MG ORAL DAILY, TAB Tamsulosin Hcl (Tamsulosin Hcl*) 0.4 Mg Cap.er.24h 0.4 MG ORAL BEDTIME, CAP Discontinued Medications: Aspirin* (Aspir 81*) 81 Mg Tablet.dr 81 MG ORAL DAILY, TAB Glimepiride* (Glimepiride*) 4 Mg Tablet 4 MG ORAL BEFORE BREAKFAST, TAB Heparin Sod (Porcine) (Heparin Sodium*) 5 000/1 Ml Vial 5000 UNITS SUBQ EVERY 12 HOURS, VIAL Discharge Condition Upon Discharge: stable Discharge Disposition Patient was discharged to [facility] (04) Discharge Diagnoses: Darshana Bonilla M.D. Aug 07, 2017 14:56
--- NOTE | 2017-08-13 22:06 | Diagnostic Imaging Report ---
APPROVED REPORT CPT Code: 00306 Present Symptoms Lower Extremity Pain: Bilateral RIGHT LEG: Venous imaging reveals acute thrombus in the common femoral, superficial femoral to popliteal veins. The calf veins not well visualized. LEFT LEG: Venous imaging reveals acute thrombus in the common femoral to superficial femoral veins. Imaging also reveals patency of the popliteal and calf veins. Greater saphenous vein also within normal limits. SAIRA Mark was notified of abnormal results at 1025 hours.
== END 2017-08-07 14:40 | DRG 299 ==
LOC: EDBD 16:06 → EDBEDREQ 16:53 → EMR 17:16 → 2E 17:20 → EDBEDREQ 17:23
DX: I82.403 Acute embolism and thrombosis of unspecified deep veins of lower extremity, bilateral (principal); I26.99 Other pulmonary embolism without acute cor pulmonale; N39.0 Urinary tract infection, site not specified; E11.22 Type 2 diabetes mellitus with diabetic chronic kidney disease; E66.01 Morbid (severe) obesity due to excess calories; K80.20 Calculus of gallbladder without cholecystitis without obstruction; I12.9 Hypertensive chronic kidney disease with stage 1 through stage 4 chronic kidney disease, or unspecified chronic kidney disease; N40.0 Benign prostatic hyperplasia without lower urinary tract symptoms; M19.90 Unspecified osteoarthritis, unspecified site; K21.9 Gastro-esophageal reflux disease without esophagitis; N18.3 Chronic kidney disease, stage 3 (moderate); M48.061 Spinal stenosis, lumbar region without neurogenic claudication; Z79.4 Long term (current) use of insulin; B96.20 Unspecified Escherichia coli [E. coli] as the cause of diseases classified elsewhere; Z16.12 Extended spectrum beta lactamase (ESBL) resistance; E11.40 Type 2 diabetes mellitus with diabetic neuropathy, unspecified; D64.9 Anemia, unspecified; N31.9 Neuromuscular dysfunction of bladder, unspecified; N43.3 Hydrocele, unspecified
CPT/HCPCS: 36415; 71045; 71260; 74177; 76700; 78266; 80053; 81001; 81003; 82248; 82306; 82550; 82553; 82607; 82746; 82962; 83036; 83605; 83735; 83880; 84100; 84443; 84484; 85025; 85610; 85651; 85730; 86140; 86710; 87040; 87070; 87081; 87086; 87181; 87205; 93005; 93306; 93970; 94664; 99285; J1815; J2405; J8499